=== PATIENT | female | born 1940 | race Hispanic/Latino ===

== ENCOUNTER 2016-10-27 09:20 | Emergency (ER) | payer MEDICARE, OTHER ==
[2016-10-27 09:22] VITALS: BMI 26.6
[2016-10-27 10:13] VITALS: BP 144/76; PULSE 97; RESP 17; TEMP 98.8; O2SAT 98
--- NOTE | 2016-10-27 10:40 | ED PDOC ---
Arrival/HPI - General Chief Complaint: GI Problem Time Seen by Provider: 10/27/16 09:35 Historian: Patient - History of Present Illness Narrative History of Present Illness (Text): 10/27/16 10:37 75 year old female presents to the emergency department complaining of constipation and rectal pain for the past 7 days. As per EMS, patient had a bowel movement prior to arrival. Patient reports she is on Percocet for a fall months ago. She states she is still passing gas. She reports she took over the counter laxatives with no improvement. Denies fever or rectal bleeding. PMD: Dr. Sinha Time/Duration: 1 week Symptom Onset: Gradual Symptom Course: Unchanged Modifying Factors (Text): Over the counter laxatives with no improvement Associated Symptoms (Text): None Past Medical History - Provider Review Nursing Documentation Reviewed: Yes - Infectious Disease Hx of Infectious Diseases: None - Cardiac Hx Cardiac Disorders: Yes Hx Hypertension: Yes - Pulmonary Hx Respiratory Disorders: No - Neurological Hx Neurological Disorder: Yes Other/Comment: cerebral palsy. contracted L arm - HEENT Hx HEENT Disorder: Yes (WEARS RX GLASSES,H/O OF DETACHED RETINA WITH SX WHEN SHE WAS 47 YRS OLD) - Renal Hx Renal Disorder: No - Endocrine/Metabolic Hx Endocrine Disorders: Yes Hx Diabetes Mellitus Type 1: Yes (borderline) - Hematological/Oncological Hx Blood Disorders: No - Integumentary Hx Dermatological Disorder: Yes (BILATERAL LE LYMPHEDEMA.EDEMA MORE TO LEFT THAN RIGHT.FLUSHED SKIN LEFT LEG) - Musculoskeletal/Rheumatological Hx Musculoskeletal Disorders: Yes (Cerebral Palsy) Hx Falls: Yes (FELL TODAY 06-17-16) Hx Unsteady Gait: Yes - Gastrointestinal Hx Gastrointestinal Disorders: No - Genitourinary/Gynecological Hx Genitourinary Disorders: No - Psychiatric Hx Psychophysiologic Disorder: No Hx Substance Use: No - Surgical History Hx Hysterectomy: Yes - Anesthesia Hx Anesthesia Reactions: No Hx Malignant Hyperthermia: No Family/Social History - Physician Review Nursing Documentation Reviewed: Yes Family/Social History: Unknown Family HX Smoking Status: Never Smoked Hx Alcohol Use: No Hx Substance Use: No Allergies/Home Meds Allergies/Adverse Reactions: Allergies ORANGE Allergy (Verified 10/27/16 09:26) ANAPHYLAXIS Penicillins Allergy (Verified 10/27/16 09:26) ANAPHYLAXIS Home Medications: Home Meds Medication Instructions Recorded Confirmed Esomeprazole Magnesium [Nexium] 40 mg PO DAILY 06/17/16 06/17/16 Pravastatin Sodium [Pravachol] 80 mg PO DAILY 06/17/16 06/17/16 Propranolol HCl [Propranolol HCl 120 mg PO DAILY 06/17/16 06/17/16 ER] cycloSPORINE [Restasis] 1 drp OU BID 06/17/16 06/17/16 Review of Systems - Physician Review All systems were reviewed & negative as marked: Yes - Review of Systems Constitutional: absent: Fevers Cardiovascular: absent: Chest Pain Gastrointestinal: Constipation, Other (Rectal pain). absent: Vomiting, Hematochezia Neurological: absent: Headache, Dizziness Physical Exam Vital Signs Reviewed: Yes Vital Signs Temp Pulse Resp BP Pulse Ox 10/27/16 10:10 98.8 F 97 H 17 144/76 98 Temperature: Afebrile Blood Pressure: Normal Pulse: Regular Respiratory Rate: Normal Appearance: Positive for: Well-Appearing, Non-Toxic, Comfortable Pain Distress: None Mental Status: Positive for: Alert and Oriented X 3 - Systems Exam Head: Present: Atraumatic, Normocephalic Pupils: Present: PERRL Extroacular Muscles: Present: EOMI Conjunctiva: Present: Normal Mouth: Present: Moist Mucous Membranes Neck: Present: Normal Range of Motion Respiratory/Chest: Present: Clear to Auscultation, Good Air Exchange. No: Respiratory Distress, Accessory Muscle Use Cardiovascular: Present: Regular Rate and Rhythm, Normal S1, S2. No: Murmurs Abdomen: Present: Normal Bowel Sounds. No: Tenderness, Distention, Peritoneal Signs Rectal: Present: Other (Piece of hard stool in rectal wall. Guest Laundry Attendant: Rajani, ED Scribe) Back: Present: Normal Inspection Upper Extremity: Present: Normal Inspection. No: Cyanosis, Edema Lower Extremity: Present: Normal Inspection. No: Edema Neurological: Present: GCS=15, CN II-XII Intact, Speech Normal Skin: Present: Warm, Dry, Normal Color. No: Rashes Psychiatric: Present: Alert, Oriented x 3, Normal Insight, Normal Concentration Medical Decision Making ED Course and Treatment: Impression: 75 year old female presents to the emergency department complaining of constipation and rectal pain for the past 7 days. Differential Diagnosis include but are not limited to: pt with large fecal impaction Plan: -- Fleet Enema -- Reassess and disposition Prior Visits: Notes and results from previous visits were reviewed. Patient last seen in ED on 06/17/16 for falls and admitted. Progress Notes: 10/27/16 10:32 Performed manual disimpaction with copious amount of stool removed. Patient reports she feels better and requesting discharge. 10/27/16 11:25 - Medication Orders Current Medication Orders: Discontinued Medications Sodium Phosphate (Fleet Enema) 135 ml RC STAT STA Stop: 10/27/16 09:46 Last Admin: 10/27/16 09:58 Dose: 135 ml - Scribe Statement The provider has reviewed the documentation as recorded by the Dahiana Hi Provider Scribe Attestation: All medical record entries made by the Dahiana were at my direction and personally dictated by me. I have reviewed the chart and agree that the record accurately reflects my personal performance of the history, physical exam, medical decision making, and the department course for this patient. I have also personally directed, reviewed, and agree with the discharge instructions and disposition. Disposition/Present on Arrival - Present on Arrival Any Indicators Present on Arrival: No History of DVT/PE: No History of Uncontrolled Diabetes: No Urinary Catheter: No History of Decub. Ulcer: No History Surgical Site Infection Following: None - Disposition Have Diagnosis and Disposition been Completed?: Yes Diagnosis: Fecal impaction Disposition: HOME/ ROUTINE Disposition Time: 10:00 Patient Problems: Current Active Problems Problem Status Onset Fecal impaction Acute Condition: STABLE Discharge Instructions (ExitCare): Constipation (ED), Fecal Impaction (ED) Additional Instructions: please follow up wiht your doctor. return to er with worsening symptoms or concerns. Referrals: Jaime Sinha MD [Primary Care Provider] - Follow up with primary
== END 2016-10-27 11:34 | disposition home or self-care (01) ==
LOC: ED 09:20
DX: K56.41 Fecal impaction (principal)

== ENCOUNTER 2018-03-04 15:07 | Inpatient (IN) | payer MEDICARE, OTHER ==
--- NOTE | 2018-03-04 15:23 | ED PDOC ---
Arrival/HPI - General Time Seen by Provider: 03/04/18 15:23 Historian: Patient - History of Present Illness Narrative History of Present Illness (Text): 03/04/18 15:33 77 year old female, whose past medical history includes cerebral palsy and hypertension, who presents to the ED complaining of left thigh pain s/p fall. Patient states she was waiting for her homemaker, when she tried to go to the bathroom on her own. Patient stepped on her own foot and fell backwards. Patient notes pain down the left thigh with movement. Patient denies any fever, chills, LOC, head trauma, neck pain, n/v/d, or any other complaints. Time/Duration: Prior to Arrival Symptom Onset: Gradual Symptom Course: Unchanged Activities at Onset: Light Context: Home Past Medical History - Provider Review Nursing Documentation Reviewed: Yes - Infectious Disease Hx of Infectious Diseases: None - Cardiac Hx Cardiac Disorders: Yes Hx Hypertension: Yes - Pulmonary Hx Respiratory Disorders: No - Neurological Hx Neurological Disorder: Yes Other/Comment: cerebral palsy. contracted L arm - HEENT Hx HEENT Disorder: Yes (WEARS RX GLASSES,H/O OF DETACHED RETINA WITH SX WHEN SHE WAS 47 YRS OLD) - Renal Hx Renal Disorder: No - Endocrine/Metabolic Hx Endocrine Disorders: Yes Hx Diabetes Mellitus Type 1: Yes (borderline) - Hematological/Oncological Hx Blood Disorders: No - Integumentary Hx Dermatological Disorder: Yes (BILATERAL LE LYMPHEDEMA.EDEMA MORE TO LEFT THAN RIGHT.FLUSHED SKIN LEFT LEG) - Musculoskeletal/Rheumatological Hx Musculoskeletal Disorders: Yes (Cerebral Palsy) Hx Falls: Yes (FELL TODAY 06-17-) Hx Unsteady Gait: Yes - Gastrointestinal Hx Gastrointestinal Disorders: No - Genitourinary/Gynecological Hx Genitourinary Disorders: No - Psychiatric Hx Psychophysiologic Disorder: No Hx Substance Use: No - Surgical History Hx Hysterectomy: Yes - Anesthesia Hx Anesthesia Reactions: No Hx Malignant Hyperthermia: No Family/Social History - Physician Review Nursing Documentation Reviewed: Yes Family/Social History: Unknown Family HX Smoking Status: Never Smoked Hx Alcohol Use: No Hx Substance Use: No Allergies/Home Meds Allergies/Adverse Reactions: Allergies ORANGE Allergy (Verified 10/27/16 09:26) ANAPHYLAXIS Penicillins Allergy (Verified 10/27/16 09:26) ANAPHYLAXIS Home Medications: Home Meds Medication Instructions Recorded Confirmed RX: Esomeprazole Magnesium [Nexium] 40 mg PO DAILY 06/17/16 06/17/16 RX: Pravastatin Sodium [Pravachol] 80 mg PO DAILY 06/17/16 06/17/16 RX: Propranolol HCl [Propranolol 120 mg PO DAILY 06/17/16 06/17/16 HCl ER] RX: cycloSPORINE [Restasis] 1 drp OU BID 06/17/16 06/17/16 Review of Systems - Physician Review All systems were reviewed & negative as marked: Yes - Review of Systems Constitutional: Normal Eyes: Normal ENT: Normal Respiratory: Normal. absent: SOB, Cough Cardiovascular: Normal. absent: Chest Pain Gastrointestinal: Normal Genitourinary Female: Normal. absent: Dysuria, Frequency Musculoskeletal: Other (LLE thigh pain). absent: Back Pain, Neck Pain Neurological: Normal. absent: Headache, Dizziness Endocrine: Normal Hemo/Lymphatic: Normal Psychiatric: Normal Physical Exam - Physical Exam Narrative Physical Exam (Text): 03/04/18 15:42 Gen: NAD, cooperative, well appearing, non-toxic. Head: NCAT. EYES: PERRL, EOMI, conjunctiva clear, EARS: TMs clear MOUTH: moist MM, posterior pharynx without erythema or exudate, uvula midline. CV: (+) S1S2, RRR, no M/G/R LUNGS: CTA B/L, No W/R/R, good air movement Abd: Soft, NTTP, no guarding, rebound or rigidity. Neuro: AAO x 3, GCS 15, CN 2-12 intact, motor and sensory grossly intact, 5/5 muscle strength B/L UE's and LE's. EXT: Circumferential erythema from 1/3 left calf to ankle. No wounds. Clean. Left hand contracted. no cyanosis or edema. (+) TTP along left lateral thigh and w/internal rotation of LLE. Distal pulses 2+. 03/05/18 19:03 Medical Decision Making ED Course and Treatment: 03/04/18 15:56 Impression: 77 year olf female presents to the ED complaining of left thigh pain s/p fall today. Plan: -- Labs -- Morphine -- Blood Culture -- Xray left hip -- UA -- US LLE Progress Notes: Per patient's niece, patient is not allergic to Percocet, pt just gets constipated with use. 03/04/18 18:18 Xray let hip reviewed, shows IT fracture. Labs reviewed and d/w pt/family, wbc elevated at 17.9, reactive v. infection, given LLE erythema will cover w/abx. Patient and pt's son made aware of fracture and need for admission. Pierre catheter to be placed. 03/04/18 18:[address] Rodriguez, who is aware and agrees with plan. Will come evaluate pt at bedside. Pt will be admitted to hospitalist. 03/04/18 19:35 Dr. Carvajal accepts pt to her service. US LLE still pending. Disposition/Present on Arrival - Present on Arrival Any Indicators Present on Arrival: No History of DVT/PE: No History of Uncontrolled Diabetes: No Urinary Catheter: No History Surgical Site Infection Following: None - Disposition Have Diagnosis and Disposition been Completed?: Yes Diagnosis: Hip fracture, Cellulitis Disposition: HOSPITALIZED Disposition Time: 19:35 Patient Plan: Admission Condition: STABLE
[2018-03-04] MEDS ORDERED: Morphine 2 mg/ml ISec IVP STA (15:55)
[2018-03-04 17:20] LABS: BASO # 0.04 K/mm3 (0.0-2.0); BASO % 0.2 % (0.0-3.0); EOS # 0.3 (0.0-0.7); EOS % 1.6 % (1.5-5.0); GRAN # 15.74 (1.4-6.5); GRAN % 87.7 % (50.0-68.0); HEMOGLOBIN 13.5 g/dL (12.0-16.0); LYMPH # 1.2 (1.2-3.4); LYMPH % 6.7 % (22.0-35.0); MEAN CELL VOLUME 91.3 fl (80.0-105.0); MEAN CORPUSCULAR HEMOGLOBIN 30.2 pg (25.0-35.0); MEAN CORPUSCULAR HGB CONC 33.1 g/dl (31.0-37.0); MONO # 0.7 (0.1-0.6); MONO % 3.8 % (1.0-6.0); RBC 4.47 10^6/uL (3.5-6.1); RED CELL DISTRIBUTION WIDTH 13.6 % (11.5-14.5); WHITE BLOOD COUNT 17.9 10^3/uL (4.5-11.0)
[2018-03-04 17:33] LABS: ALB/GLOB RATIO 1.1 (1.1-1.8); ALBUMIN 3.9 g/dL (3.0-4.8); ALT/SGPT 35 U/L (7-56); AST/SGOT 82 U/L (14-36); BLOOD UREA NITROGEN 28 mg/dL (7-21); GFR NON-AFRICAN AMERICAN > 60
[2018-03-04] MEDS ORDERED: Vancomycin 1gm in NS 250ml 1 GM/250 ML BAG IVPB STA (18:43)
[2018-03-04] MEDS ORDERED: Morphine 4 mg/ml ISec IVP STA ×2 (19:49→20:33)
--- NOTE | 2018-03-04 20:11 | CP.PCM.HP ---
History of Present Illness - History of Present Illness History of Present Illness: Oracio Harley DO, PGY-1 Hospitalist Admission History and Physical for Dr. Genet Carvajal Ms. Wilburn is a 77 yo F with PMH of cerebral palsy, HTN, and DVT who presented to ED following a fall on to her left hip. Patient states that she was walking to the bathroom when she fell directly on to her left hip and bruised her LLE as well. She fell on to the tile in the bathroom. She states that her caregiver was helping her at the time but was unable to prevent her from falling. She remembers falling and denies LOC or pre-syncopal symptoms of dizziness, blurred vision. She is in significant pain from the left hip and LLE but otherwise denies fever/chills, CP, SOB, nausea/vomiting/abdominal pain, peripheral numbness/tingling. PMH: cerebral palsy affecting LUE, HTN, DVT PSH: cataracts, detached retina, hysterectomy Soc Hx: denies tobacco, alcohol, or drug use, denies prior tobacco use, normally ambulates around her house with help of caregiver Fam Hx: reviewed, non-contributory Home medications: MAR medications reviewed with family members. Family members cannot remember the doses, call pharmacy in AM to confirm Preferred pharmacy: [facility] in [place] Allergies: orange, PCN (reaction is anaphylaxis) Present on Admission - Present on Admission Any Indicators Present on Admission: Yes History of DVT/PE: Yes History of Uncontrolled Diabetes: No Urinary Catheter: No Decubitus Ulcer Present: No Review of Systems - Constitutional Constitutional: absent: Chills, Fever - EENT Eyes: absent: Blurred Vision, Change in Vision - Cardiovascular Cardiovascular: absent: Chest Pain, Dyspnea - Respiratory Respiratory: absent: Cough, Dyspnea - Gastrointestinal Gastrointestinal: absent: Abdominal Pain, Nausea, Vomiting - Genitourinary Genitourinary: absent: Change in Urinary Stream, Difficulty Urinating, Dysuria - Musculoskeletal Musculoskeletal: absent: Abnormal Gait, Back Pain - Neurological Neurological: absent: Syncope, Vertigo Past Patient History - Infectious Disease Hx of Infectious Diseases: None - Past Social History Smoking Status: Never Smoked - CARDIAC Hx Cardiac Disorders: Yes Hx Hypertension: Yes - PULMONARY Hx Respiratory Disorders: No - NEUROLOGICAL Hx Neurological Disorder: Yes Other/Comment: cerebral palsy. contracted L arm - HEENT Hx HEENT Problems: Yes (WEARS RX GLASSES,H/O OF DETACHED RETINA WITH SX WHEN SHE WAS 47 YRS OLD) - RENAL Hx Chronic Kidney Disease: No - ENDOCRINE/METABOLIC Hx Endocrine Disorders: Yes Hx Diabetes Mellitus Type 1: Yes (borderline) - HEMATOLOGICAL/ONCOLOGICAL Hx Blood Disorders: No - INTEGUMENTARY Hx Dermatological Problems: Yes (BILATERAL LE LYMPHEDEMA.EDEMA MORE TO LEFT THAN RIGHT.FLUSHED SKIN LEFT LEG) - MUSCULOSKELETAL/RHEUMATOLOGICAL Hx Musculoskeletal Disorders: Yes (Cerebral Palsy) Hx Falls: Yes (FELL TODAY 06-17-16) Hx Unsteady Gait: Yes - GASTROINTESTINAL Hx Gastrointestinal Disorders: No - GENITOURINARY/GYNECOLOGICAL Hx Genitourinary Disorders: No - PSYCHIATRIC Hx Psychophysiologic Disorder: No Hx Substance Use: No - SURGICAL HISTORY Hx Hysterectomy: Yes - ANESTHESIA Hx Anesthesia Reactions: No Hx Malignant Hyperthermia: No Meds Allergies/Adverse Reactions: Allergies Allergy/AdvReac Type Severity Reaction Status Date / Time ORANGE Allergy ANAPHYLAXIS Verified 10/27/16 09:26 Penicillins Allergy ANAPHYLAXIS Verified 10/27/16 09:26 Physical Exam - Constitutional Appears: Other (in severe pain from L hip, no acute respiratory distress) - Head Exam Head Exam: ATRAUMATIC, NORMOCEPHALIC - Eye Exam Eye Exam: EOMI, Normal appearance, PERRL - ENT Exam ENT Exam: Mucous Membranes Moist - Neck Exam Neck exam: Positive for: Full Rom, Normal Inspection - Respiratory Exam Respiratory Exam: Clear to Auscultation Bilateral, NORMAL BREATHING PATTERN. absent: Accessory Muscle Use, Rales, Rhonchi, Wheezes, Respiratory Distress - Cardiovascular Exam Cardiovascular Exam: REGULAR RHYTHM, RRR, +S1, +S2. absent: Diastolic murmur, Gallop, Rubs, Systolic Murmur - GI/Abdominal Exam GI & Abdominal Exam: Normal Bowel Sounds, Soft. absent: Guarding, Rebound - Extremities Exam Extremities exam: Positive for: pedal edema Additional comments: LLE hematoma from fall, LLE turned inward c/w L hip fx - Neurological Exam Neurological exam: Alert, Oriented x3 - Psychiatric Exam Psychiatric exam: Anxious - Skin Skin Exam: Dry, Intact, Warm Results - Vital Signs Recent Vital Signs: Last Vital Signs Temp 97.6 F 03/04/18 15:31 Pulse 75 03/04/18 17:08 Resp 17 03/04/18 17:08 BP 153/83 H 03/04/18 17:08 Pulse Ox 97 03/04/18 17:08 - Labs Result Diagrams: 03/04/18 17:00 03/04/18 17:00 Labs: Laboratory Results - last 24 hr 03/04/18 03/04/18 17:00 17:00 WBC 17.9 H D RBC 4.47 Hgb 13.5 Hct 40.8 MCV 91.3 MCH 30.2 MCHC 33.1 RDW 13.6 Plt Count 216 MPV 11.0 Gran % 87.7 H Lymph % (Auto) 6.7 L [place] % (Auto) 3.8 Eos % (Auto) 1.6 Baso % (Auto) 0.2 Gran # 15.74 H Lymph # (Auto) 1.2 [place] # (Auto) 0.7 H Eos # (Auto) 0.3 Baso # (Auto) 0.04 Sodium 135 Potassium 3.9 Chloride 101 Carbon Dioxide 25 Anion Gap 13 BUN 28 H Creatinine 0.7 Est GFR ( Amer) > 60 Est GFR (Non-Af Amer) > 60 Random Glucose 165 H Calcium 10.0 Total Bilirubin 0.6 AST 82 H ALT 35 Alkaline Phosphatase 99 Total Protein 7.5 Albumin 3.9 Globulin 3.6 Albumin/Globulin Ratio 1.1 Assessment & Plan - Assessment and Plan (Free Text) Assessment: 77 yo F with PMH of cerebral palsy, HTN, DVT presents to ED following a fall found to have L acetabular fx. Plan per Dr. Scott is for OR tomorrow. Plan: 1. L acetabular Fx 2/2 trauma from fall Plan per ortho is for OR tomorrow Patient has not eaten all day, so able to eat dinner but NPO after midnight Morphine 4 mg IVP Q4h for pain control Monitor for pain control Pre-op labs including CBC, CMP, coag, cxr, ekg all completed Dr. Zuniga cardiology consulted for cardiac clearance per ortho request Hold home eliquis (on home eliquis for hx of DVT) until authorized by ortho 2. Hx HTN Restart home meds post-op Monitor BP closely 3. Hx DVT Hold home eliquis prior to surgery DVT/GI PPX: hold DVT ppx prior to surgery, will start ae hose and/or scds after, protonix Full Code Monitor on med/surg Case and plan reviewed and discussed with my attending Dr. Genet Harley, DO IM Resident PGY-1
[2018-03-04 21:04] LABS: URINE APPEARANCE CLEAR (CLEAR); URINE BILIRUBIN NEGATIVE (NEGATIVE); URINE BLOOD NEGATIVE (NEGATIVE); URINE COLOR YELLOW (YELLOW); URINE GLUCOSE (UA) NEGATIVE (NEGATIVE); URINE LEUKOCYTE ESTERASE NEGATIVE Leu/uL (NEGATIVE); URINE PROTEIN TRACE mg/dL (<30 mg/dL); URINE UROBILINOGEN 0.2 E.U./dL (<1 E.U./dL)
[2018-03-04 21:15] LABS: URINE BACTERIA NEG (NEG); URINE EPITHELIAL CELLS 0 - 2 /hpf (0-5); URINE RBC NEGATIVE /hpf (0-2); URINE WBC NEGATIVE /hpf (0-6)
[2018-03-04] MEDS: Aztreonam 1 Gm in NS 100mL 100 ML IVPB SCH (22:20)
[2018-03-04 22:42] VITALS: BMI 25.1
[2018-03-04 23:08] LABS: INR 1.41; PARTIAL THROMBOPLASTIN TIME 32.6 Seconds (25.1-36.5); PROTHROMBIN TIME 16.2 SECONDS (9.4-12.5)
[2018-03-05] MEDS: Morphine 4 mg/ml ISec IVP PRN ×2 (00:18→03:27)
[2018-03-05] MEDS ORDERED: HYDROmorphone 0.5 mg/0.5 ml ISec IVP ONE ×3 (01:27→14:53)
[2018-03-05] MEDS: Aztreonam 1 Gm in NS 100mL 100 ML IVPB SCH (05:15)
--- NOTE | 2018-03-05 06:06 | CON ---
DATE: 03/04/2018 ORTHOPEDIC CONSULTATION HISTORY OF PRESENT ILLNESS: A 77-year-old female who came in to the emergency room from a fall at home where she was alone and injured her left hip. X-ray shows displaced subcapital fracture, left hip. When she is medically cleared, she will need bipolar hip prosthesis and a cardiac clearance from Dr. Zuniga . Private doctor also. She is on Eliquis, so we will have to hold off the Eliquis and if we could do it Tuesday, which is in 24 hours we need to stop the Eliquis, so she can go to surgery without undue bleeding. The day of fracture and the day of admission in the ER is 03/04/2018, and we will try to get her cleared for surgery on Tuesday or Tuesday. FINAL DIAGNOSIS: Displaced subcapital fracture, left hip. Dhruv Scott DO MTDSilvia
[2018-03-05 07:49] LABS: BASO # 0.04 K/mm3 (0.0-2.0); BASO % 0.3 % (0.0-3.0); EOS # 0.1 (0.0-0.7); EOS % 0.6 % (1.5-5.0); GRAN # 11.86 (1.4-6.5); GRAN % 84.9 % (50.0-68.0); HEMOGLOBIN 12.1 g/dL (12.0-16.0); LYMPH % 7.4 % (22.0-35.0); MEAN CELL VOLUME 90.6 fl (80.0-105.0); MEAN CORPUSCULAR HEMOGLOBIN 29.2 pg (25.0-35.0); MEAN CORPUSCULAR HGB CONC 32.3 g/dl (31.0-37.0); MEAN PLATELET VOLUME 10.8 fl (7.0-11.0); MONO % 6.8 % (1.0-6.0); RBC 4.14 10^6/uL (3.5-6.1); RED CELL DISTRIBUTION WIDTH 13.3 % (11.5-14.5)
[2018-03-05 08:32] LABS: ALB/GLOB RATIO 1.1 (1.1-1.8); ALBUMIN 3.7 g/dL (3.0-4.8); ALT/SGPT 34 U/L (7-56); AST/SGOT 38 U/L (14-36); BLOOD UREA NITROGEN 27 mg/dL (7-21); CALCIUM 9.6 mg/dL (8.4-10.5); GFR NON-AFRICAN AMERICAN > 60
[2018-03-05] MEDS: HYDROmorphone 1 mg/ml ISec IVP PRN ×3 (09:09→22:59)
[2018-03-05] MEDS ORDERED: Potassium Chloride 20 mEq ER Tab PO ONE (09:40)
--- NOTE | 2018-03-05 10:02 | RAD ---
Date of service: 03/04/2018 HISTORY: pre-admission COMPARISON: 06/25/2016 FINDINGS: LUNGS: The lungs are well inflated and clear. PLEURA: No pleural effusions or pneumothorax. CARDIOVASCULAR: The heart is normal in size. No aortic atherosclerotic calcification present. OSSEOUS STRUCTURES: There is diffuse bone demineralization. There is an old fracture deformity in a left lower posterior rib. VISUALIZED UPPER ABDOMEN: Normal. OTHER FINDINGS: None. IMPRESSION: No active pulmonary disease.
--- NOTE | 2018-03-05 10:11 | CARD ---
APPROVED REPORT Date of service: 03/05/2018 EKG Measurement Heart [id number] <Conclusion> Sinus tachycardia with premature atrial complexes PRWP LVH by voltage STTW changes c/w ischemia, new Prolonged QTc
--- NOTE | 2018-03-05 10:30 | RAD ---
PROCEDURE: Left Hip X-ray Radiographs. HISTORY: fall COMPARISON: None. FINDINGS: BONES: The pelvic ring is intact. There is diffuse bone demineralization. There is an acute nondisplaced left subcapital femoral fracture. JOINTS: Normal. SOFT TISSUES: Normal. OTHER FINDINGS: None. IMPRESSION: Acute nondisplaced left femoral subcapital fracture. No dislocation.
[2018-03-05] MEDS ORDERED: Etomidate 20 mg/10ml Inj IV ONE (11:05)
[2018-03-05] MEDS ORDERED: Succinylcholine 200 mg/10 ml Inj IV ONE (11:06)
[2018-03-05] MEDS ORDERED: Phenylephrine 10 mg/ml Inj ONE (11:07)
[2018-03-05] MEDS ORDERED: HYDROmorphone 0.5 mg/0.5 ml ISec IVP PRN (11:18)
[2018-03-05] MEDS ORDERED: Lactated Ringer's 1,000 ML IV SCH ×2 (11:30→14:45)
[2018-03-05] MEDS ORDERED: Bupivacaine 0.5% 50 ML IJ ONE (11:35)
[2018-03-05] MEDS ORDERED: Sevoflurane - Inhalation Anesthetic Liq (250 ml) ONE (11:40)
[2018-03-05] MEDS ORDERED: Rocuronium 10 mg/ml (5 ml) ONE (11:53)
[2018-03-05] MEDS ORDERED: Esmolol 100 mg/10ml Inj IV ONE ×2 (12:00→13:13)
[2018-03-05] MEDS ORDERED: Vancomycin 1 g Inj ONE ×2 (12:00→12:03)
[2018-03-05] MEDS ORDERED: Neostigmine Methylsulfate 3mg/3ml Syringe IV ONE (12:56)
--- NOTE | 2018-03-05 13:53 | CP.PCM.PN ---
<Pola Parnell - Last Filed: 03/05/18 14:07> Subjective - Date & Time of Evaluation Date of Evaluation: 03/05/18 Time of Evaluation: 06:00 - Subjective Subjective: Pt seen and examined this morning. Pt reports left hip pain. Pt denies chest pain or SOB. Objective - Vital Signs/Intake and Output Vital Signs (last 24 hours): Temp Pulse Resp BP Pulse Ox 98.6 F 95 H 18 159/93 H 97 03/05/18 06:00 03/05/18 06:00 03/05/18 06:00 03/05/18 06:00 03/05/18 06:00 Intake and Output: 03/05/18 03/05/18 06:59 18:59 Intake Total 450 Output Total 400 Balance 50 - Medications Medications: Current Medications Hydralazine HCl (Apresoline) 10 mg IVP Q6H PRN PRN Reason: Systolic Blood Pressure Hydromorphone HCl (Dilaudid) 1 mg IVP Q3H PRN PRN Reason: Pain, severe (8-10) Last Admin: 03/05/18 09:09 Dose: 1 mg Hydromorphone HCl (Dilaudid) 0.5 mg IVP Q15M PRN PRN Reason: Pain, moderate (4-7) Stop: 03/05/18 17:00 Lactated Ringer's (Lactated Ringer's) 1,000 mls @ 75 mls/hr IV .[id number] [facility] Stop: 03/05/18 13:31 Ondansetron HCl (Zofran Inj) 4 mg IVP ONCE PRN PRN Reason: Nausea/Vomiting - Labs Labs: 03/05/18 07:00 03/05/18 07:00 PT 16.2 SECONDS (9.4-12.5) H 03/04/18 22:56 INR 1.41 03/04/18 22:56 APTT 32.6 Seconds (25.1-36.5) 03/04/18 22:56 - Constitutional Appears: Non-toxic, No Acute Distress - Head Exam Head Exam: ATRAUMATIC, NORMAL INSPECTION, NORMOCEPHALIC - Eye Exam Eye Exam: EOMI - ENT Exam ENT Exam: Mucous Membranes Moist - Neck Exam Neck Exam: Full ROM - Respiratory Exam Respiratory Exam: Clear to Ausculation Bilateral, NORMAL BREATHING PATTERN. absent: Accessory Muscle Use, Wheezes, Respiratory Distress - Cardiovascular Exam Cardiovascular Exam: RRR, +S1, +S2. absent: Diastolic murmur, Murmur - GI/Abdominal Exam GI & Abdominal Exam: Soft, Normal Bowel Sounds. absent: Distended, Tenderness - Extremities Exam Extremities Exam: Tenderness. absent: Calf Tenderness, Full ROM, Pedal Edema Additional comments: left leg internally rotated, due to cerebral palsy - Neurological Exam Neurological Exam: Alert, Awake, Oriented x3 - Psychiatric Exam Psychiatric exam: Normal Affect, Normal Mood - Skin Skin Exam: Dry, Normal Color, Warm Assessment and Plan - Assessment and Plan (Free Text) Assessment: 77 yo F with PMH of cerebral palsy, HTN, DVT presents to ED following a fall found to have L acetabular fx. Plan: L acetabular Fx, ORIF - WBC 14 - 2/2 mechanical fall - pt had ORIF performed today - Morphine 4 mg IVP Q4h for pain control - Dr. Zuniga cardiology consulted for cardiac clearance - Hold home eliquis Hx HTN - Monitor BP closely, restart after surgery Hx DVT - Hold home eliquis prior to surgery Ppx - protonix - Full Code Pt seen, examined, assessment and plan discussed with Dr Mel Parnell PGY1 <Gisel Leal - Last Filed: 03/05/18 16:22> Objective - Vital Signs/Intake and Output Vital Signs (last 24 hours): Temp Pulse Resp BP Pulse Ox 98.2 F 88 16 154/68 H 95 03/05/18 15:57 03/05/18 15:57 03/05/18 15:57 03/05/18 15:57 03/05/18 15:57 Intake and Output: 03/05/18 03/05/18 06:59 18:59 Intake Total 450 Output Total 400 Balance 50 - Medications Medications: Current Medications Docusate Sodium (Colace) 100 mg PO TID [facility] Heparin Sodium (Porcine) (Heparin) 5,000 units SC Q12 [facility]; Protocol Hydralazine HCl (Apresoline) 10 mg IVP Q6H PRN PRN Reason: Systolic Blood Pressure Hydromorphone HCl (Dilaudid) 1 mg IVP Q3H PRN PRN Reason: Pain, severe (8-10) Last Admin: 10/28/18 09:09 Dose: 1 mg Hydromorphone HCl (Dilaudid) 0.5 mg IVP Q15M PRN PRN Reason: Pain, moderate (4-7) Stop: 03/05/18 17:00 Last Admin: 03/05/18 14:35 Dose: 0.5 mg Lactated Ringer's (Lactated Ringer's) 1,000 mls @ 75 mls/hr IV .[id number] [facility]ES[facility] Stop: 03/05/18 16:46 Clindamycin Phosphate (Cleocin) 600 mg in 50 mls @ 50 mls/hr IVPB Q12 [facility]; Protocol Morphine Sulfate (Morphine) 4 mg IVP Q15M PRN PRN Reason: Pain, severe (8-10) Ondansetron HCl (Zofran Inj) 4 mg IVP ONCE PRN PRN Reason: Nausea/Vomiting - Labs Labs: 03/05/18 07:00 03/05/18 07:00 PT 16.2 SECONDS (9.4-12.5) H 03/04/18 22:56 INR 1.41 03/04/18 22:56 APTT 32.6 Seconds (25.1-36.5) 03/04/18 22:56 Attending/Attestation - Attestation I have personally seen and examined this patient.: Yes I have fully participated in the care of the patient.: Yes I have reviewed all pertinent clinical information, including history, physical exam and plan: Yes Notes (Text): 03/05/18 16:18 77 year old female with past medical history of hypertension, DVT, and cerebral palsy who presented s/p mechanical fall found to have left acetabular fracture. Case was discussed with orthopedics today; patient is for OR today. Cardiology evaluation was requested for clearance. Leukocytosis likely reactive secondary to above. CXR/UA is negative. Will continue to monitor. Eliquis is held for plan for procedure today; consider resuming post procedure if okay with cardiology and orthopedics. Daughter is at bedside and questions were answered. Gisel Leal MD Hospitalist.
[2018-03-05] MEDS ORDERED: Metoprolol 1 mg/ml Inj ONE (14:21)
[2018-03-05] MEDS ORDERED: Morphine 4 mg/ml ISec IVP PRN (14:31)
[2018-03-05] MEDS ORDERED: HYDROmorphone 0.5 mg/0.5 ml ISec ONE ×2 (14:34→14:56)
[2018-03-05] MEDS: Clindamycin 600mg/50ml D5W 600 MG/50 ML VIAL IVPB SCH (21:03)
--- NOTE | 2018-03-05 21:40 | CON ---
DATE: 03/05/2018 CARDIOLOGY CONSULTATION HISTORY: The patient is a 77-year-old woman who presented with right hip pain after a fall. The fall was a mechanical fall, no associated syncope, no dizziness with it. PAST MEDICAL HISTORY: Notable for hypertension. Hypertension treated with Diovan and hydralazine. In addition, the patient suffers from hypercholesterolemia. She is also on Eliquis at home for history of DVTs. Her last dose was 24 hours ago. She lives with chronic and cerebral palsy, which leaves her with difficulty ambulating. SOCIAL HISTORY: She denies smoking. REVIEW OF SYSTEMS: Fourteen-point review of systems is reviewed in detail. No cardiac symptomatology is noted. PHYSICAL EXAMINATION: VITAL SIGNS: Blood pressure 159/93, heart rates in the 90s, normal sinus rhythm. NECK: Negative JVD. LUNGS: Without rales. HEART: Reveals S1, S2 with a short systolic ejection murmur. EXTREMITIES: Without edema. EKG shows normal sinus rhythm with nonspecific ST-T changes. LABORATORY DATA: Hemoglobin is 12.1. Chemistries, BUN and creatinine unremarkable. The potassium is 3.3. IMPRESSION: 1. Status post mechanical fall. 2. Right hip fracture. 3. History of deep venous thrombosis. 4. History of cerebral palsy. 5. Hypertension. 6. Hypercholesterolemia. Given these findings, the patient's predominant cardiac risk is not cardiac in nature. Her cerebral palsy and difficulty ambulating would presents with a postop issues. In addition, I have discussed with the patient about a slightly increased and bleeding risk given her recent Eliquis dose. However, given the risk and benefit analysis, surgery would be best done as soon as possible. Andi Garibay MD
--- NOTE | 2018-03-06 02:16 | OP ---
PROCEDURE DATE: 03/05/2018 PREOPERATIVE DIAGNOSIS: Displaced subcapital fracture of left hip. POSTOPERATIVE DIAGNOSIS: Displaced subcapital fracture of left hip. PROCEDURE: Left hip bipolar prosthesis using a Biomet bipolar cup prosthesis with porous-coated femoral stem of 11 mm wide x 135 mm long, taper stem type 1 and a standard neck in a bipolar component of 43 mm x 28 mm head. SANDBLAST OPERATOR SURGEON: A agriculture mechanic named, Michele. ANESTHESIA: General endotracheal tube. DESCRIPTION OF PROCEDURE: The patient was taken to the OR. Left hip prepped and draped in sterile fashion. She had preexisting cerebral palsy on the left side and there was a left subcapital fracture. It appeared to be over 2 weeks old considering no sharp edges of the bone. Probably, it was a nondisplaced fracture than displaced, . Planned to do an anterolateral approach considering the high chance of dislocation posteriorly for this patient when she internally rotates. We visualized this subcutaneous tissues approximately about 6 inches long and it went down to the fascia. Split the fascia in line with the incision, which was right over the greater trochanter only 3 cm above and 3 cm below the trochanter. The fascia lloyd was opened. We came two thirds of it posteriorly and one third anteriorly by dissecting it off the femur with piece of sliver of bone from the trochanter to serve an easy repair. Now, retracted anteriorly to allow to get to the gluteus minimus in the anterior capsule, which was opened and tagged, eventually what we used to repair the anterior capsule. The femoral head was retrieved with a corkscrew and a skid and appropriate reaming done of the femur, so we could see the bone was already well rounded from the fracture and it was over 2 weeks old. Then we prepped the femur with reaming and rasping using an 11 mm stem. A trial reduction was done and stable. Then, we put the permanent porous-coated prosthesis in, attached to the standard neck and head and 43 mm head bipolar component. Closed the capsule through the bone anchoring through the bone tunnels with #1 FiberWire for sutures and then we closed the wound with 0 Vicryl for the fascia and we put vancomycin powder 2 g into the wound before we closed the fascia. This settled into the fascia and the joint. Then, we closed the vastus lateralis and gluteus medius with 0 Vicryl also and skin with a combination of 2-0 nylon interrupted and stainless steel adelaide. The patient was taken to the recovery room in an abduction pillow for protection because she is a little rambunctious and a knee immobilizer. Dhruv Scott DO MTDSilvia
[2018-03-06] MEDS: HYDROmorphone 1 mg/ml ISec IVP PRN ×4 (02:34→20:57)
[2018-03-06 04:09] LABS: BASO # 0.01 K/mm3 (0.0-2.0); BASO % 0.1 % (0.0-3.0); GRAN # 7.93 (1.4-6.5); GRAN % 71.7 % (50.0-68.0); LYMPH # 1.5 (1.2-3.4); LYMPH % 13.3 % (22.0-35.0); MEAN CELL VOLUME 89.8 fl (80.0-105.0); MEAN CORPUSCULAR HEMOGLOBIN 30.2 pg (25.0-35.0); MEAN CORPUSCULAR HGB CONC 33.6 g/dl (31.0-37.0); MONO # 1.7 (0.1-0.6); MONO % 14.9 % (1.0-6.0); RBC 2.75 10^6/uL (3.5-6.1); RED CELL DISTRIBUTION WIDTH 13.7 % (11.5-14.5); WHITE BLOOD COUNT 11.1 10^3/uL (4.5-11.0)
[2018-03-06 04:22] LABS: HEMOGLOBIN 8.3 g/dL (12.0-16.0)
[2018-03-06] MEDS ORDERED: Iodixanol 320 MG/ML 100 ML BOTTLE IV ONE (04:50)
[2018-03-06] MEDS ORDERED: Sodium Chloride 0.9% 500 ML IV STA (04:58)
[2018-03-06 05:46] LABS: ALBUMIN 2.7 g/dL (3.0-4.8); BLOOD UREA NITROGEN 28 mg/dL (7-21); CALCIUM 8.6 mg/dL (8.4-10.5); GFR NON-AFRICAN AMERICAN > 60
[2018-03-06 05:47] LABS: ALT/SGPT 36 U/L (7-56); AST/SGOT 47 U/L (14-36); TROPONIN I 0.09 ng/mL
--- NOTE | 2018-03-06 07:28 | CP.PCM.PN ---
Subjective - Date & Time of Evaluation Date of Evaluation: 03/06/18 Time of Evaluation: 06:50 - Subjective Subjective: Awake, alert, no distress, post left hip surgery Reason for consultation and follow up: Cardiac evaluation and risk stratification for left hip surgery,status post fall, follow up post left hip surgery , history of cerebral palsy,hypertension, and DVT. See and examined by me and Dr. Zuniga Objective - Vital Signs/Intake and Output Vital Signs (last 24 hours): Temp Pulse Resp BP Pulse Ox 98.5 F 94 H 18 117/66 93 L 03/06/18 07:13 03/06/18 07:13 03/06/18 07:13 03/06/18 07:13 03/06/18 03:36 Intake and Output: 03/06/18 03/06/18 06:59 18:59 Intake Total 300 Balance 300 - Medications Medications: Current Medications Docusate Sodium (Colace) 100 mg PO TID [facility] Last Admin: 03/05/18 17:14 Dose: Not Given Heparin Sodium (Porcine) (Heparin) 5,000 units SC Q12 [facility]; Protocol Hydralazine HCl (Apresoline) 10 mg IVP Q6H PRN PRN Reason: Systolic Blood Pressure Hydromorphone HCl (Dilaudid) 1 mg IVP Q3H PRN PRN Reason: Pain, severe (8-10) Last Admin: 03/06/18 02:34 Dose: 1 mg Clindamycin Phosphate (Cleocin) 600 mg in 50 mls @ 50 mls/hr IVPB Q12 [facility]; Protocol Last Admin: 03/05/18 21:03 Dose: 50 mls/hr Morphine Sulfate (Morphine) 4 mg IVP Q15M PRN PRN Reason: Pain, severe (8-10) Ondansetron HCl (Zofran Inj) 4 mg IVP ONCE PRN PRN Reason: Nausea/Vomiting - Labs Labs: 03/06/18 03:55 03/06/18 03:55 PT 16.2 SECONDS (9.4-12.5) H 03/04/18 22:56 INR 1.41 03/04/18 22:56 APTT 32.6 Seconds (25.1-36.5) 03/04/18 22:56 - Constitutional Appears: Non-toxic, No Acute Distress - Head Exam Head Exam: NORMAL INSPECTION, NORMOCEPHALIC - Eye Exam Eye Exam: Normal appearance Pupil Exam: NORMAL ACCOMODATION - ENT Exam ENT Exam: Mucous Membranes Dry - Respiratory Exam Respiratory Exam: Clear to Ausculation Bilateral, NORMAL BREATHING PATTERN - Cardiovascular Exam Cardiovascular Exam: +S1, +S2 - GI/Abdominal Exam GI & Abdominal Exam: Soft, Normal Bowel Sounds - Extremities Exam Additional comments: left hip dressing. with abductor pillow intact 2-3 + foot edema contracted left arm - Neurological Exam Neurological Exam: Alert, Awake, Oriented x3 - Psychiatric Exam Psychiatric exam: Normal Affect, Normal Mood - Skin Skin Exam: Dry, Normal Color, Warm Assessment and Plan - Assessment and Plan (Free Text) Assessment: A 77 year old female who came in to the ER due to fall having a left hip fracture. History of cerebral palsy.hypertension, DVT on Eliquis. Cleared for left hip surgery by Dr. Garibay (covering our service). Status post left ORIF POD #1. Cardiac status stable.Denies shortness of breath.Will order ECHO. Review of previous cardiac work up: 06/22/16- ECHO- Normal LV size, LVEF 60 % Moderately calcified aortic valve Plan: No distress, no shortness of breath For Echo today to evaluate LV function Left hip surgery POD # 1 Cardiac status stable Heart rate and blood pressure controlled H/H low,PRBC transfusing Will start low dose betablocker Continue current treatment Continue current medications Chart reviewed Will follow up Plan and treatment discussed with Dr. Zuniga
--- NOTE | 2018-03-06 09:37 | RAD ---
Date of service: 03/06/2018 PROCEDURE: CHEST RADIOGRAPH, 1 VIEW HISTORY: tachy cardia + post op fever COMPARISON: 03/04/2018 FINDINGS: LUNGS: Clear. PLEURA: No pneumothorax or pleural fluid seen. CARDIOVASCULAR: Normal. OSSEOUS STRUCTURES: No significant abnormalities. VISUALIZED UPPER ABDOMEN: Normal. OTHER FINDINGS: None. IMPRESSION: No active disease.
[2018-03-06] MEDS: Heparin25000 units/250ml 1/2NS 25,000 UNITS/250 ML BAG IV PRN ×2 (10:10→17:31)
--- NOTE | 2018-03-06 10:39 | CT ---
Date of service: 03/06/2018 PROCEDURE: CT Chest with contrast (Pulmonary Angiogram) HISTORY: tachy post op COMPARISON: None available. TECHNIQUE: Axial computed tomography images were obtained of the chest in the pulmonary arterial phase of enhancement. Coronal and sagittal reformatted images were created and reviewed. Intravenous contrast dose: Radiation dose: Total exam DLP = 436.3 mGy-cm. This CT exam was performed using one or more of the following dose reduction techniques: Automated exposure control, adjustment of the mA and/or kV according to patient size, and/or use of iterative reconstruction technique. FINDINGS: PULMONARY ARTERIES: Questionable segmental right lower lobe pulmonary emboli. AORTA: No acute findings. No thoracic aortic aneurysm. No aortic atherosclerotic calcification or mural plaque present. LUNGS: Millimeter diaphragm with linear atelectasis at the right base. Minimal axis at the left base. PLEURAL SPACES: Unremarkable. No effusion or pneumothorax. HEART: Unremarkable. No cardiomegaly. No significant pericardial effusion. LYMPH NODES: No lymphadenopathy. BONES, CHEST WALL: Unremarkable. No fracture or destructive lesion OTHER FINDINGS: Marked esophageal dilatation with air-fluid level in association with hiatal hernia. Recommend correlation with upper GI series and/or endoscopy.. IMPRESSION: Questionable segmental right lower lobe pulmonary emboli. Marked esophageal dilatation with air-fluid level in association with hiatal hernia. Recommend correlation with upper GI series and/or endoscopy..
--- NOTE | 2018-03-06 10:58 | US ---
PROCEDURE: Left lower extremity venous US HISTORY: Leg pain and swelling. Evaluate for DVT. PHYSICIAN(S): Andi Mak MD. TECHNIQUE: Duplex sonography and color-flow Doppler with graded compression were used to evaluate the deep venous system of the left lower extremity. FINDINGS: The visualized deep venous system of the left lower extremity is sonographically normal and compressible. Normal wave forms and augmentation are seen. There is no sonographic evidence for deep venous thrombosis in the visualized segments of the left lower extremity. IMPRESSION: 1. No sonographic evidence for deep venous thrombosis in the visualized segments of the left lower extremity.
--- NOTE | 2018-03-06 11:32 | RAD ---
Date of service: 03/05/2018 PROCEDURE: Left hip portable intraoperative HISTORY: OR COMPARISON: TECHNIQUE: Intraoperative portable FINDINGS: There is a left hip prosthesis in satisfactory alignment. There are 2 hemostats medial to the prosthesis. IMPRESSION: As above
[2018-03-06 11:33] LABS: MEAN CELL VOLUME 89.3 fl (80.0-105.0); MEAN CORPUSCULAR HEMOGLOBIN 29.6 pg (25.0-35.0); MEAN CORPUSCULAR HGB CONC 33.1 g/dl (31.0-37.0); MEAN PLATELET VOLUME 10.4 fl (7.0-11.0); RBC 3.38 10^6/uL (3.5-6.1); RED CELL DISTRIBUTION WIDTH 13.7 % (11.5-14.5); WHITE BLOOD COUNT 11.7 10^3/uL (4.5-11.0)
--- NOTE | 2018-03-06 11:33 | RAD ---
Date of service: 03/05/2018 PROCEDURE: Left hip portable intraoperative HISTORY: POST OP COMPARISON: Earlier intraoperative film TECHNIQUE: Portable film FINDINGS: There is a left hip prosthesis in satisfactory alignment with no complicating factors. IMPRESSION: As above
--- NOTE | 2018-03-06 11:35 | PQF ---
PROVIDER RESPONSE TEXT: Provider was unable to determine a response for this query. REVIEWER QUERY TEXT: Anemia Type Anemia is documented in the Medical Record. Please specify the cause (includes suspected or probable cause) Such as: -- Due to acute blood loss -- Due to chronic blood loss -- Due to iron deficiency -- Due to postoperative blood loss -- Due to chronic disease -- Other, please specify The patient's Clinical Indicators include: Query created by: Daniela Ro on 03/06/2018 10:31 AM Electronically signed by: Gisel Leal MD 03/06/2018 11:32 AM
--- NOTE | 2018-03-06 14:04 | PN ---
DATE: 03/06/2018 ORTHOPEDIC FIRST DAY POSTOPERATIVE REPORT She underwent a left hip bipolar replacement yesterday on 03/05/2018 to stabilize the left hip and get her less pain. She is feeling less pain. She does need a unit of blood for 8.2 hemoglobin since she just has a positive pulmonary embolus that is going to have to be treated with anticoagulation. We have to just watch the wound and make sure she does not get a hematoma, and we will still get her up and out of bed to minimize the chance of pneumonia. She may not feel like walking today, but we have to get her upright for help the lungs aerate better, and the wound looks dry and there were no bleeding. We will follow her H and H closely and start her ambulating when she feels stronger. Dhruv Scott DO DEMETRICE
[2018-03-06] MEDS: Clindamycin 600mg/50ml D5W 600 MG/50 ML VIAL IVPB SCH ×2 (15:22→23:20)
[2018-03-06 16:21] LABS: INR 1.38; PROTHROMBIN TIME 15.8 SECONDS (9.4-12.5)
[2018-03-06 16:25] LABS: PARTIAL THROMBOPLASTIN TIME 285.6 Seconds (25.1-36.5)
--- NOTE | 2018-03-06 17:58 | PN ---
DATE: 03/06/2018 REASON FOR CONSULTATION AND FOLLOWUP: Preop evaluation and postop followup hip surgery. SUBJECTIVE: Patient lying flat, not in apparent distress. Status post fall, status post hip fracture, status post hip surgery. History of cerebral palsy, born with it; hypertension, DVT. Patient seen with Lois Oakley. Patient is stable. Patient had echocardiography on 06/22/2016. LV ejection fraction 60%, moderately calcified aortic valve, normal LV function. LABORATORY DATA: CT chest, there is a questionable segmental right lower lobe PE. Patient's hemoglobin is 8. , status post packed RBC. RECOMMENDATIONS: Patient started on heparin. Continue heparin, continue low-dose beta-jesus. Consider switching over to Eliquis. We will switch over if H and H remained stable to 10 mg of Eliquis b.i.d. for 1 week followed by 5 mg daily from tomorrow. We will monitor H and H. If remained stable, we will start Eliquis 10 b.i.d. for 1 week followed by 5 that will cover for PE. Judy Zuniga MD
--- NOTE | 2018-03-06 21:30 | CP.PCM.PN ---
<Pola Parnell - Last Filed: 03/06/18 21:36> Subjective - Date & Time of Evaluation Date of Evaluation: 03/06/18 Time of Evaluation: 06:15 - Subjective Subjective: Pt seen and examined at bedside while receiving unit of pRBCs.. Denies shortness of breath or chestpain. Denies fever, chills, throbbing pain, n/v/d. Objective - Vital Signs/Intake and Output Vital Signs (last 24 hours): Temp Pulse Resp BP Pulse Ox 99.5 F 121 H 18 108/66 95 03/06/18 14:17 03/06/18 14:17 03/06/18 14:17 03/06/18 14:17 03/06/18 14:17 Intake and Output: 03/06/18 03/07/18 18:59 06:59 Intake Total 575 Balance 575 - Medications Medications: Current Medications Amlodipine Besylate (Norvasc) 10 mg PO DAILY [facility] Last Admin: 03/06/18 18:20 Dose: Not Given Docusate Sodium (Colace) 100 mg PO TID [facility] Last Admin: 03/06/18 18:21 Dose: 100 mg Heparin Sodium (Porcine) (Heparin) 5,000 units SC Q12 [facility]; Protocol Last Admin: 03/06/18 10:00 Dose: Not Given Hydralazine HCl (Apresoline) 10 mg IVP Q6H PRN PRN Reason: Systolic Blood Pressure Hydromorphone HCl (Dilaudid) 1 mg IVP Q3H PRN PRN Reason: Pain, severe (8-10) Last Admin: 03/06/18 20:57 Dose: 1 mg Clindamycin Phosphate (Cleocin) 600 mg in 50 mls @ 50 mls/hr IVPB Q12 [facility]; Protocol Last Admin: 03/06/18 15:22 Dose: 50 mls/hr Heparin Sodium/Sodium Chloride (Heparin 90399 Units/250ml 1/2 Normal Saline) 25,000 units in 250 mls @ 11.594 mls/hr IV .[id number] PRN; Protocol PRN Reason: ADJUST RATE PER PROTOCOL Last Admin: 03/06/18 17:31 Dose: 13.35 units/kg/hr, 8.6 mls/hr Metoprolol Tartrate (Lopressor) 25 mg PO BID [facility] Last Admin: 03/06/18 13:10 Dose: 25 mg Morphine Sulfate (Morphine) 4 mg IVP Q15M PRN PRN Reason: Pain, severe (8-10) Ondansetron HCl (Zofran Inj) 4 mg IVP ONCE PRN PRN Reason: Nausea/Vomiting - Labs Labs: 03/06/18 11:25 03/06/18 03:55 PT 15.8 SECONDS (9.4-12.5) H 03/06/18 16:00 INR 1.38 03/06/18 16:00 APTT 285.6 Seconds (25.1-36.5) H* 03/06/18 16:00 - Constitutional Appears: No Acute Distress - Head Exam Head Exam: ATRAUMATIC, NORMAL INSPECTION - Eye Exam Eye Exam: EOMI. absent: Scleral icterus - ENT Exam ENT Exam: Mucous Membranes Moist - Respiratory Exam Respiratory Exam: Clear to Ausculation Bilateral. absent: Accessory Muscle Use, Wheezes - Cardiovascular Exam Cardiovascular Exam: Tachycardia, +S1, +S2. absent: Murmur - GI/Abdominal Exam GI & Abdominal Exam: Soft, Normal Bowel Sounds. absent: Tenderness - Extremities Exam Extremities Exam: Normal Capillary Refill. absent: Calf Tenderness, Pedal Edema Additional comments: Left hip surgical incision healing healing well. no signs of infection. Dressing in place and intact. - Neurological Exam Neurological Exam: Alert, Awake - Psychiatric Exam Psychiatric exam: Normal Affect, Normal Mood - Skin Skin Exam: Dry, Intact, Warm. absent: Rash Assessment and Plan - Assessment and Plan (Free Text) Assessment: 77 yo F with PMH of cerebral palsy, HTN, DVT presents to ED following a fall found to have L acetabular fx. Pt under ORIF with orthopedic surgery. Pt's hgb droped from 12 to 8 post surgery. Pt found to have PE on chest CT. Pt transused 1 unit pRBCs. Hgb corrected to 10. Pt started on IV heparin drip. Plan: Pulmonary Embolism - CT chest: questionable segmental right lower lobe pulmonary emboli - CXR (03/06): no active disease - extremity u/s 03/04: no DVT - repeat extremity ultrasound pending - on heparin drip - Cardiology, Efrain following; continue heparin and low dose Beta-jesus; start eliquis 10 mg BID for one week followed by 5mg BID to cover for PE Post-surgical drop hemoglobin drop - Hgb dropped from 12 to 8 - transfused 1 unit pRBCs; corrected Hgb to 10 - continue to monitor H/H L acetabular Fx s/p ORIF - pt had mechanical fall - hip pelvis xray (03/04): acute nondisplaced left femoral subcapital fracture no dislocation - pt had ORIF performed today - hip xray post surgery (03/05): Left hip prosthesis in satisfactory alignment, no complicating factors - leukocytosis improving 11.7 today - continue Dilaudid 1mg IVP q3 prn for pain control - continue colace 100 mg PO TID - ortho following Hx HTN - restart home novasc 10 mg PO daily - restart home lopressor 25mg PO BID - hydralazine 10 mg IVP q6 prn Hx DVT - eliquis per cardio as above Ppx - protonix - Full Code <Judy Eli - Last Filed: 03/09/18 15:34> Objective - Vital Signs/Intake and Output Vital Signs (last 24 hours): Temp Pulse Resp BP Pulse Ox 98.4 F 84 20 107/63 95 03/08/18 07:55 03/08/18 21:18 03/08/18 07:55 03/08/18 21:18 03/08/18 07:55 - Labs Labs: 03/08/18 14:30 03/08/18 06:30 PT 15.8 SECONDS (9.4-12.5) H 03/06/18 16:00 INR 1.38 03/06/18 16:00 APTT 53.4 Seconds (25.1-36.5) H 03/07/18 13:10 Attending/Attestation - Attestation I have personally seen and examined this patient.: Yes I have fully participated in the care of the patient.: Yes I have reviewed all pertinent clinical information, including history, physical exam and plan: Yes Notes (Text): 03/09/18 15:34 Medical record note made by the resident after discussion with my direction and input after the patient was personally seen and examined by me. I have reviewed the chart and agree that the record accurately reflects by personal performance of the history, physical exam, data review, and medical decision-making, in the course for the patient. I have also personally directed the plan of care.
[2018-03-07] MEDS: HYDROmorphone 1 mg/ml ISec IVP PRN ×2 (01:15→09:47)
--- NOTE | 2018-03-07 05:56 | CP.PCM.PN ---
Subjective - Date & Time of Evaluation Date of Evaluation: 03/07/18 Time of Evaluation: 06:15 - Subjective Subjective: Awake, alert, no distress, post left hip surgery Reason for consultation and follow up: Cardiac evaluation and risk stratification for left hip surgery,status post fall, follow up post left hip surgery , history of cerebral palsy,hypertension, and DVT. See and examined by me and Dr. Zuniga Objective - Vital Signs/Intake and Output Vital Signs (last 24 hours): Temp Pulse Resp BP Pulse Ox 99.5 F 87 18 107/54 L 95 03/06/18 22:00 03/06/18 22:00 03/06/18 22:00 03/06/18 22:00 03/06/18 22:00 Intake and Output: 03/06/18 03/07/18 18:59 06:59 Intake Total 575 263 Balance 575 263 - Medications Medications: Current Medications Amlodipine Besylate (Norvasc) 10 mg PO DAILY [facility] Last Admin: 03/06/18 18:20 Dose: Not Given Docusate Sodium (Colace) 100 mg PO TID [facility] Last Admin: 03/06/18 18:21 Dose: 100 mg Heparin Sodium (Porcine) (Heparin) 5,000 units SC Q12 [facility]; Protocol Last Admin: 03/06/18 22:44 Dose: Not Given Hydralazine HCl (Apresoline) 10 mg IVP Q6H PRN PRN Reason: Systolic Blood Pressure Hydromorphone HCl (Dilaudid) 1 mg IVP Q3H PRN PRN Reason: Pain, severe (8-10) Last Admin: 03/07/18 01:15 Dose: 1 mg Heparin Sodium/Sodium Chloride (Heparin 85892 Units/250ml 1/2 Normal Saline) 25,000 units in 250 mls @ 11.594 mls/hr IV .[id number] PRN; Protocol PRN Reason: ADJUST RATE PER PROTOCOL Last Titration: 03/07/18 00:52 Dose: 11.35 units/kg/hr, 7.311 mls/hr Metoprolol Tartrate (Lopressor) 25 mg PO BID [facility] Last Admin: 03/06/18 13:10 Dose: 25 mg Morphine Sulfate (Morphine) 4 mg IVP Q15M PRN PRN Reason: Pain, severe (8-10) Ondansetron HCl (Zofran Inj) 4 mg IVP ONCE PRN PRN Reason: Nausea/Vomiting - Labs Labs: 03/06/18 11:25 03/06/18 03:55 PT 15.8 SECONDS (9.4-12.5) H 03/06/18 16:00 INR 1.38 03/06/18 16:00 APTT 98.0 Seconds (25.1-36.5) H 03/06/18 22:55 - Constitutional Appears: Non-toxic, No Acute Distress - Head Exam Head Exam: NORMOCEPHALIC - Eye Exam Eye Exam: Normal appearance Pupil Exam: NORMAL ACCOMODATION - ENT Exam ENT Exam: Mucous Membranes Moist - Respiratory Exam Respiratory Exam: Clear to Ausculation Bilateral, NORMAL BREATHING PATTERN - Cardiovascular Exam Cardiovascular Exam: +S1, +S2 - GI/Abdominal Exam GI & Abdominal Exam: Soft, Normal Bowel Sounds - Extremities Exam Additional comments: 2+edema left hip surgery with abductor pillow intact - Neurological Exam Neurological Exam: Alert, Awake, Oriented x3 - Psychiatric Exam Psychiatric exam: Normal Affect, Normal Mood - Skin Skin Exam: Dry, Normal Color, Warm Assessment and Plan - Assessment and Plan (Free Text) Assessment: A 77 year old female who came in to the ER due to fall having a left hip fracture. History of cerebral palsy.hypertension, DVT on Eliquis. Cleared for left hip surgery by Dr. Garibay (covering our service). Status post left ORIF POD #2. Cardiac status stable.Denies shortness of breath.CT of chest showed questionnable segmental right lower lobe pulmonary emboli. Started on Heparin. Status post blood transfusion of 1 unit PRBC for low H/H. Plan: No distress, no shortness of breath For Echo today to evaluate LV function Left hip surgery POD # 2 Started on Heparin drip titrate to protocol Will switch to Eliquis if H/H stable Repeat H/H post transfusion 03/07.2 Doppler studies for lower extremities to rule out DVT done pending results Cardiac status stable Heart rate and blood pressure controlled Continue current treatment Continue current medications Chart reviewed Will follow up Plan and treatment discussed with Dr. Zuniga
[2018-03-07 07:22] LABS: BASO # 0.02 K/mm3 (0.0-2.0); BASO % 0.2 % (0.0-3.0); EOS # 0.1 (0.0-0.7); EOS % 0.7 % (1.5-5.0); GRAN # 9.52 (1.4-6.5); HEMOGLOBIN 9.4 g/dL (12.0-16.0); LYMPH # 1.3 (1.2-3.4); LYMPH % 10.6 % (22.0-35.0); MEAN CELL VOLUME 88.5 fl (80.0-105.0); MEAN CORPUSCULAR HGB CONC 33.9 g/dl (31.0-37.0); MEAN PLATELET VOLUME 10.8 fl (7.0-11.0); MONO # 1.6 (0.1-0.6); MONO % 12.5 % (1.0-6.0); RBC 3.13 10^6/uL (3.5-6.1); RED CELL DISTRIBUTION WIDTH 14.1 % (11.5-14.5); WHITE BLOOD COUNT 12.5 10^3/uL (4.5-11.0)
[2018-03-07 07:45] LABS: ALB/GLOB RATIO 0.9 (1.1-1.8); ALBUMIN 2.8 g/dL (3.0-4.8); ALT/SGPT 34 U/L (7-56); AST/SGOT 47 U/L (14-36); BLOOD UREA NITROGEN 18 mg/dL (7-21); CALCIUM 8.4 mg/dL (8.4-10.5); GFR NON-AFRICAN AMERICAN > 60
--- NOTE | 2018-03-07 09:00 | US ---
HISTORY: Arm pain and swelling. Evaluate for deep venous thrombosis. PHYSICIAN(S): nAdi Mak MD. FINDINGS: The visualized internal jugular veins are sonographically normal and compressible. No evidence of obstruction or thrombus this is seen. The visualized segments of the subclavian veins are patent with normal waveforms. No sonographic evidence of obstruction or thrombosis is seen. The visualized deep venous systems of both upper extremities proximally are sonographically normal and compressible. IMPRESSION: 1. No sonographic evidence for deep venous thrombosis in the visualized segments of both upper strategies.
--- NOTE | 2018-03-07 09:01 | US ---
HISTORY: Leg pain and swelling. Evaluate for DVT PHYSICIAN(S): Andi Mak MD. TECHNIQUE: Duplex sonography and color-flow Doppler with graded compression were used to evaluate the deep venous systems of both lower extremities. The exam is somewhat limited by edema. FINDINGS: The visualized deep venous systems of both lower extremities are sonographically normal and compressible. Normal wave forms and augmentation are seen. There is no sonographic evidence for deep venous thrombosis in the visualized segments of both lower extremities. IMPRESSION: No sonographic evidence for deep venous thrombosis in the visualized segments of both lower extremities.
[2018-03-07] MEDS ORDERED: Potassium Chloride 20 mEq ER Tab PO ONE ×2 (10:02→13:00)
--- NOTE | 2018-03-07 20:13 | CP.PCM.PN ---
<Pola Parnell - Last Filed: 03/07/18 20:14> Subjective - Date & Time of Evaluation Date of Evaluation: 03/07/18 Time of Evaluation: 06:00 - Subjective Subjective: Pt seen and examined. Resting comfortably in bed. Denies chest pain, SOB. Reports moderate post-surgical hip pain. Objective - Vital Signs/Intake and Output Vital Signs (last 24 hours): Temp Pulse Resp BP Pulse Ox 97.9 F 102 H 18 132/72 97 03/07/18 07:50 03/07/18 07:50 03/07/18 07:50 03/07/18 07:50 03/07/18 07:50 Intake and Output: 03/07/18 03/08/18 18:59 06:59 Intake Total 360 Balance 360 - Medications Medications: Current Medications Amlodipine Besylate (Norvasc) 10 mg PO DAILY [facility] Last Admin: 03/07/18 10:00 Dose: Not Given Apixaban (Eliquis) 10 mg PO BID [facility]; Protocol Stop: 03/13/18 23:59 Last Admin: 03/07/18 17:35 Dose: 10 mg Apixaban (Eliquis) 5 mg PO BID [facility]; Protocol Docusate Sodium (Colace) 100 mg PO TID [facility] Last Admin: 03/07/18 17:35 Dose: 100 mg Hydralazine HCl (Apresoline) 10 mg IVP Q6H PRN PRN Reason: Systolic Blood Pressure Hydromorphone HCl (Dilaudid) 1 mg IVP Q3H PRN PRN Reason: Pain, severe (8-10) Last Admin: 03/07/18 09:47 Dose: 1 mg Metoprolol Tartrate (Lopressor) 25 mg PO BID [facility] Last Admin: 03/07/18 18:26 Dose: Not Given Morphine Sulfate (Morphine) 4 mg IVP Q15M PRN PRN Reason: Pain, severe (8-10) - Labs Labs: 03/07/18 07:00 03/07/18 07:00 PT 15.8 SECONDS (9.4-12.5) H 03/06/18 16:00 INR 1.38 03/06/18 16:00 APTT 53.4 Seconds (25.1-36.5) H 03/07/18 13:10 - Constitutional Appears: No Acute Distress - Head Exam Head Exam: ATRAUMATIC, NORMAL INSPECTION - Eye Exam Eye Exam: EOMI, Normal appearance. absent: Scleral icterus - ENT Exam ENT Exam: Mucous Membranes Moist - Respiratory Exam Respiratory Exam: Clear to Ausculation Bilateral, NORMAL BREATHING PATTERN. absent: Rales, Rhonchi, Wheezes - Cardiovascular Exam Cardiovascular Exam: RRR, +S1, +S2. absent: Murmur - GI/Abdominal Exam GI & Abdominal Exam: Soft, Normal Bowel Sounds. absent: Tenderness - Extremities Exam Extremities Exam: absent: Calf Tenderness, Pedal Edema Additional comments: left hand palsy. Left lower extremity internally rotated. Left hip s/p ORIF surgical incision healing well. No signs of infection - Neurological Exam Neurological Exam: Alert, Awake - Psychiatric Exam Psychiatric exam: Normal Affect, Normal Mood - Skin Skin Exam: Dry, Warm. absent: Rash Assessment and Plan - Assessment and Plan (Free Text) Assessment: 77 yo F with PMH of cerebral palsy, HTN, DVT presents to ED following a fall found to have L acetabular fx. Pt under ORIF with orthopedic surgery. Pt's hgb droped from 12 to 8 post surgery. Pt found to have PE on chest CT. Pt transused 1 unit pRBCs. Hgb stable today. Plan: Pulmonary Embolism - CT chest: questionable segmental right lower lobe pulmonary emboli - CXR (03/06): no active disease - upper and lower extremity u/s: no DVT - stopped heparin drip - Cardiology, Dr. Zuniga following; continue low dose Beta-jesus; start eliquis 10 mg BID for one week followed by 5mg BID to cover for PE - f/u echo Post-surgical drop hemoglobin drop - Hgb dropped from 12 to 8, transfused 1 unit pRBCs; corrected Hgb to 10 - Hgb stable today at 9.4 - continue to monitor H/H L acetabular Fx s/p ORIF - pt had mechanical fall - hip pelvis xray (03/04): acute nondisplaced left femoral subcapital fracture no dislocation - hip xray post surgery (03/05): Left hip prosthesis in satisfactory alignment, no complicating factors - leukocytosis, 12.5 - continue Dilaudid 1mg IVP q3 prn for pain control - continue colace 100 mg PO TID - ortho following - PT eval Hx HTN - continue home novasc 10 mg PO daily - continue home lopressor 25mg PO BID - hydralazine 10 mg IVP q6 prn Hx DVT - eliquis per cardio as above Ppx - protonix - Full Code Dispo: possible discharge tomorrow to rehab. Pt seen and examined, assessment and plan discussed with Dr. lEi. Pola Parnell PGY1 <Judy Eli - Last Filed: 03/09/18 15:33> Objective - Vital Signs/Intake and Output Vital Signs (last 24 hours): Temp Pulse Resp BP Pulse Ox 98.4 F 84 20 107/63 95 03/08/18 07:55 03/08/18 21:18 03/08/18 07:55 03/08/18 21:18 03/08/18 07:55 - Labs Labs: 03/08/18 14:30 03/08/18 06:30 PT 15.8 SECONDS (9.4-12.5) H 03/06/18 16:00 INR 1.38 03/06/18 16:00 APTT 53.4 Seconds (25.1-36.5) H 03/07/18 13:10 Attending/Attestation - Attestation I have personally seen and examined this patient.: Yes I have fully participated in the care of the patient.: Yes I have reviewed all pertinent clinical information, including history, physical exam and plan: Yes Notes (Text): 03/09/18 15:33 Medical record note made by the resident after discussion with my direction and input after the patient was personally seen and examined by me. I have reviewed the chart and agree that the record accurately reflects by personal performance of the history, physical exam, data review, and medical decision-making, in the course for the patient. I have also personally directed the plan of care.
[2018-03-07 23:02] VITALS: RESP 20
[2018-03-08] MEDS: HYDROmorphone 1 mg/ml ISec IVP PRN (01:30)
[2018-03-08] MEDS ORDERED: Magnesium Citrate Oral SOL (300 ml) PO ONE (06:23)
--- NOTE | 2018-03-08 06:56 | CP.PCM.PN ---
Subjective - Date & Time of Evaluation Date of Evaluation: 03/08/18 Time of Evaluation: 06:15 - Subjective Subjective: Awake, alert, no distress, anxious about bowel movement, no bowel movement for 4 days Reason for consultation and follow up: Cardiac evaluation and risk stratification for left hip surgery,status post fall, follow up post left hip surgery , history of cerebral palsy,hypertension, and DVT. Seen and examined by me and Dr. Zuniga Objective - Vital Signs/Intake and Output Vital Signs (last 24 hours): Temp Pulse Resp BP Pulse Ox 98.6 F 99 H 20 118/67 94 L 03/07/18 23:01 03/07/18 23:01 03/07/18 23:01 03/07/18 23:01 03/07/18 23:01 Intake and Output: 03/07/18 03/08/18 18:59 06:59 Intake Total 360 Balance 360 - Medications Medications: Current Medications Amlodipine Besylate (Norvasc) 10 mg PO DAILY [facility] Last Admin: 03/07/18 10:00 Dose: Not Given Apixaban (Eliquis) 10 mg PO BID [facility]; Protocol Stop: 03/13/18 23:59 Last Admin: 03/07/18 17:35 Dose: 10 mg Apixaban (Eliquis) 5 mg PO BID [facility]; Protocol Docusate Sodium (Colace) 100 mg PO TID [facility] Last Admin: 03/07/18 17:35 Dose: 100 mg Hydralazine HCl (Apresoline) 10 mg IVP Q6H PRN PRN Reason: Systolic Blood Pressure Hydromorphone HCl (Dilaudid) 1 mg IVP Q3H PRN PRN Reason: Pain, severe (8-10) Last Admin: 03/08/18 01:30 Dose: 1 mg Metoprolol Tartrate (Lopressor) 25 mg PO BID [facility] Last Admin: 03/07/18 18:26 Dose: Not Given Morphine Sulfate (Morphine) 4 mg IVP Q15M PRN PRN Reason: Pain, severe (8-10) - Labs Labs: 03/07/18 07:00 03/07/18 07:00 PT 15.8 SECONDS (9.4-12.5) H 03/06/18 16:00 INR 1.38 03/06/18 16:00 APTT 53.4 Seconds (25.1-36.5) H 03/07/18 13:10 - Constitutional Appears: Non-toxic, No Acute Distress - Head Exam Head Exam: NORMAL INSPECTION, NORMOCEPHALIC - Eye Exam Eye Exam: Normal appearance Pupil Exam: NORMAL ACCOMODATION - ENT Exam ENT Exam: Mucous Membranes Moist - Respiratory Exam Respiratory Exam: Clear to Ausculation Bilateral, NORMAL BREATHING PATTERN - Cardiovascular Exam Cardiovascular Exam: +S1, +S2 - GI/Abdominal Exam GI & Abdominal Exam: Soft, Normal Bowel Sounds Additional comments: constipated, no BM for 4 days - Extremities Exam Additional comments: left hip surgery with leg immobilizer, abductor pillow left arm contracted - Neurological Exam Neurological Exam: Alert, Awake, Oriented x3 - Psychiatric Exam Psychiatric exam: Anxious - Skin Skin Exam: Dry, Normal Color, Warm Assessment and Plan - Assessment and Plan (Free Text) Assessment: A 77 year old female who came in to the ER due to fall having a left hip fracture. History of cerebral palsy.hypertension, DVT on Eliquis. Cleared for left hip surgery by Dr. Garibay (covering our service). Status post left ORIF POD #2. Cardiac status stable.Denies shortness of breath.CT of chest showed quest ionable segmental right lower lobe pulmonary emboli. Status post blood transfusion of 1 unit PRBC for low H/H. Heparin drip discontinued and switch to Eliquis. Anxious about no bowel movement for 4 days. Lactulose given yesterday but still no bowel movement. Will give half bottle of Mg citrate today. Plan: No distress, no shortness of breath Anxious about no bowel movement for 4 days Half bottle of Mg citrate ordered Left hip surgery POD # 3 Heparin drip discontinued and started on Eliquis Doppler studies for lower extremities-no evidence of DVT Cardiac status stable Heart rate and blood pressure controlled On Norvasc 10 mg daily,Eliquis 10 mg BID until 03/13/18 then decrease to 5 mg BID Lopressor 25 mg BID Continue current treatment Continue current medications Chart reviewed Physical therapy Discharge planning possible rehab Will follow up Plan and treatment discussed with Dr. Zuniga
[2018-03-08 07:16] LABS: BASO # 0.02 K/mm3 (0.0-2.0); BASO % 0.2 % (0.0-3.0); EOS # 0.2 (0.0-0.7); GRAN # 7.15 (1.4-6.5); GRAN % 71.3 % (50.0-68.0); HEMOGLOBIN 8.9 g/dL (12.0-16.0); LYMPH # 1.4 (1.2-3.4); LYMPH % 13.5 % (22.0-35.0); MEAN CELL VOLUME 88.9 fl (80.0-105.0); MEAN CORPUSCULAR HEMOGLOBIN 30.1 pg (25.0-35.0); MEAN CORPUSCULAR HGB CONC 33.8 g/dl (31.0-37.0); MEAN PLATELET VOLUME 10.4 fl (7.0-11.0); MONO # 1.3 (0.1-0.6); RBC 2.96 10^6/uL (3.5-6.1); RED CELL DISTRIBUTION WIDTH 14.2 % (11.5-14.5)
--- NOTE | 2018-03-08 07:51 | PN ---
DATE: 03/07/2018 REASON FOR CONSULTATION AND FOLLOWUP: Preop evaluation, postop followup, DVT, PE, status post fractured hip, status post OR and internal fixation. This note is in addition to dictated by nurse practitioner. SUBJECTIVE: Patient is stable. Denies any chest pain, shortness of breath, or any palpitation. Patient is hemodynamically stable for echo today. H and H is stable at 9.4 after transfusion. Patient is on heparin. We will discontinue heparin, start 10 mg of Eliquis today for 1 week followed by 5 b.i.d. Patient was at home on Eliquis. We will supplement potassium. Judy Zuniga MD
[2018-03-08 07:56] VITALS: TEMP 98.4; O2SAT 95
[2018-03-08 07:56] LABS: ALB/GLOB RATIO 0.9 (1.1-1.8); ALBUMIN 2.3 g/dL (3.0-4.8); ALT/SGPT 60 U/L (7-56); AST/SGOT 76 U/L (14-36); BLOOD UREA NITROGEN 13 mg/dL (7-21); CALCIUM 8.1 mg/dL (8.4-10.5); GFR NON-AFRICAN AMERICAN > 60
--- NOTE | 2018-03-08 14:21 | PN ---
DATE: 03/08/2018 REASON FOR CONSULTATION AND FOLLOWUP: Acute PE, preop and postop evaluation for hip surgery. SUBJECTIVE: The patient is lying comfortably. This note is an addition to dictated by nurse practitioner. The patient has a history of cerebral palsy, status post fall, status post fracture, status post . Postop course was complicated by a small PE. The patient was on Eliquis at home before, so I started 10 mg p.o. b.i.d. for 1 week followed by 5 mg to continue. The patient will get the benefit because the patient has a hip surgery. I discussed with the son. Monitor H and H. Continue Norvasc. Continue Eliquis 10 mg p.o. b.i.d. until 03/13/2018 and then 5 mg p.o. b.i.d. Continue Lopressor. Will follow with you. Thank you for providing us the opportunity in taking care of the patient, Soledad Wilburn. Judy Zuniga MD
[2018-03-08 14:58] LABS: HEMOGLOBIN 9.1 g/dL (12.0-16.0); MEAN CORPUSCULAR HEMOGLOBIN 30.3 pg (25.0-35.0); MEAN CORPUSCULAR HGB CONC 34.1 g/dl (31.0-37.0); MEAN PLATELET VOLUME 10.3 fl (7.0-11.0)
--- NOTE | 2018-03-08 19:02 | CARD ---
APPROVED REPORT Date of service: 03/08/2018 EXAM: Two-dimensional and M-mode echocardiogram with Doppler and color Doppler. INDICATION LV Function:SystolicDiastolic 2D DIMENSIONS Left Atrium (2D)3.6 (1.6-4.0cm)IVSd1.1 (0.7-1.1cm) LVDd2.8 (3.9-5.9cm)PWd1.2 (0.7-1.1cm) LVDs1.9 (2.5-4.0cm)FS (%) 33.3 % LVEF (%)63.8 (>50%) M-Mode DIMENSIONS Aortic Root2.70 (2.2-3.7cm)Aortic Cusp Exc.1.30 (1.5-2.0cm) Aortic Valve AoV Peak Anmhmpzp668.0cm/Dee Peak GR.16mmHg Mitral Valve MV E Vofxcdnv02.9cm/sMV A Lpjqmpcq82.9cm/sE/A ratio0.8 TDI E/Lateral E'0.0E/Medial E'0.0 Tricuspid Valve TR Peak [id number]/sRAP [id number] Peak Gr.8mmHg [id number] LEFT VENTRICLE The left ventricle is normal size. There is borderline concentric left ventricular hypertrophy. The left ventricular function is normal.[id number] There is normal LV segmental wall motion. Transmitral Doppler flow pattern is Grade III-reversible restrictive diastolic dysfunction. No left ventricle thrombus noted on this study. There is no ventricular septal defect visualized. There is no left ventricular aneurysm. There is no mass noted in the left ventricle. RIGHT VENTRICLE The right ventricle is normal size. There is normal right ventricular wall thickness. The right ventricular systolic function is normal. ATRIA The left atrium size is normal. The right atrium size is normal. The interatrial septum is intact with no evidence for an atrial septal defect. AORTIC VALVE The aortic valve is calcified and displays decreased opening. There is moderate aortic regurgitation, Eccentric Jet. There is moderate valvular aortic stenosis. There is no aortic valvular vegetation. MITRAL VALVE The mitral valve is thickened but opens well. Mitral regurgitation is mild. There is no mitral valve stenosis. There is no evidence of mitral valve prolapse. TRICUSPID VALVE The tricuspid valve leaflets are thickened , but open well. There is trace tricuspid regurgitation.RVSP-17 mmof hg There is no tricuspid valve stenosis. There is no tricuspid valve prolapse or vegetation. PULMONIC VALVE The pulmonic valve is not well visualized. GREAT VESSELS The aortic root is normal in size. The ascending aorta is normal in size. The pulmonary artery is normal. The IVC is dilated. PERICARDIAL EFFUSION There is no pleural effusion. There is no pericardial effusion. <Conclusion> The left ventricle is normal size. There is borderline concentric left ventricular hypertrophy. The left ventricular function is normal.[id number]% There is moderate aortic regurgitation, Eccentric Jet. Mitral regurgitation is mild. There is trace tricuspid regurgitation.RVSP-17 mmof hg The IVC is dilated. There is no pericardial effusion.
--- NOTE | 2018-03-08 19:21 | CP.PCM.DIS ---
<Pola Parnell - Last Filed: 03/08/18 19:43> Provider - Provider Date of Admission: 03/04/18 19:40 Attending physician: Judy Eil MD Primary care physician: Jaime Sinha MD Time Spent in preparation of Discharge (in minutes): 45 Diagnosis - Discharge Diagnosis (1) Pulmonary embolism Status: Acute Priority: High (2) Acetabular fracture Status: Acute Priority: High (3) HTN (hypertension) Status: Acute Priority: High (4) DVT (deep venous thrombosis) Status: Acute Priority: High Hospital Course - Lab Results Lab Results: Micro Results 03/04/18 17:10 Blood-Venous Blood Culture - Preliminary NO GROWTH AFTER 4 DAYS 03/06/18 06:15 Blood-Venous Blood Culture - Preliminary NO GROWTH AFTER 48 HOURS 03/04/18 16:30 Blood-Venous Blood Culture - Preliminary NO GROWTH AFTER 3 DAYS 03/06/18 06:21 Urine,Pierre Urine Culture - Final No Growth (<1,000 CFU/ML) Most Recent Lab Values WBC 11.0 10^3/uL (4.5-11.0) 03/08/18 14:30 RBC 3.00 10^6/uL (3.5-6.1) L 03/08/18 14:30 Hgb 9.1 g/dL (12.0-16.0) L 03/08/18 14:30 Hct 26.7 % (36.0-48.0) L 03/08/18 14:30 MCV 89.0 fl (80.0-105.0) 03/08/18 14:30 MCH 30.3 pg (25.0-35.0) 03/08/18 14:30 MCHC 34.1 g/dl (31.0-37.0) 03/08/18 14:30 RDW 14.0 % (11.5-14.5) 03/08/18 14:30 Plt Count 207 10^3/uL (120.0-450.0) 03/08/18 14:30 MPV 10.3 fl (7.0-11.0) 03/08/18 14:30 Gran % 71.3 % (50.0-68.0) H 03/08/18 06:30 Lymph % (Auto) 13.5 % (22.0-35.0) L 03/08/18 06:30 [place] % (Auto) 13.0 % (1.0-6.0) H 03/08/18 06:30 Eos % (Auto) 2.0 % (1.5-5.0) 03/08/18 06:30 Baso % (Auto) 0.2 % (0.0-3.0) 03/08/18 06:30 Gran # 7.15 (1.4-6.5) H 03/08/18 06:30 Lymph # (Auto) 1.4 (1.2-3.4) 03/08/18 06:30 [place] # (Auto) 1.3 (0.1-0.6) H 03/08/18 06:30 Eos # (Auto) 0.2 (0.0-0.7) 03/08/18 06:30 Baso # (Auto) 0.02 K/mm3 (0.0-2.0) 03/08/18 06:30 PT 15.8 SECONDS (9.4-12.5) H 03/06/18 16:00 INR 1.38 03/06/18 16:00 APTT 53.4 Seconds (25.1-36.5) H 03/07/18 13:10 D-Dimer, Quantitative 991 ng/mlDDU (0-243) H 03/06/18 03:55 Sodium 133 mmol/L (132-148) 03/08/18 06:30 Potassium 4.1 mmol/L (3.6-5.0) 03/08/18 06:30 Chloride 103 mmol/L (98-107) 03/08/18 06:30 Carbon Dioxide 26 mmol/L (21-33) 03/08/18 06:30 Anion Gap 9 (10-20) L 03/08/18 06:30 BUN 13 mg/dL (7-21) 03/08/18 06:30 Creatinine 0.4 mg/dl (0.7-1.2) L 03/08/18 06:30 Est GFR ( Amer) > 60 03/08/18 06:30 Est GFR (Non-Af Amer) > 60 03/08/18 06:30 Random Glucose 114 mg/dL (70-110) H 03/08/18 06:30 Calcium 8.1 mg/dL (8.4-10.5) L 03/08/18 06:30 Phosphorus 2.9 mg/dL (2.5-4.5) 03/05/18 07:00 Magnesium 1.8 mg/dL (1.7-2.2) 03/07/18 07:00 Total Bilirubin 0.9 mg/dL (0.2-1.3) 03/08/18 06:30 AST 76 U/L (14-36) H D 03/08/18 06:30 ALT 60 U/L (7-56) H 03/08/18 06:30 Alkaline Phosphatase 90 U/L (38-126) 03/08/18 06:30 Troponin I 0.09 ng/mL 03/06/18 03:55 Total Protein 4.8 g/dL (5.8-8.3) L 03/08/18 06:30 Albumin 2.3 g/dL (3.0-4.8) L 03/08/18 06:30 Globulin 2.5 gm/dL 03/08/18 06:30 Albumin/Globulin Ratio 0.9 (1.1-1.8) L 03/08/18 06:30 Procalcitonin 0.42 NG/ML (0.19-0.49) 03/06/18 06:15 Urine Color Yellow (YELLOW) 03/04/18 18:38 Urine Appearance Clear (CLEAR) 03/04/18 18:38 Urine pH 6.0 (4.7-8.0) 03/04/18 18:38 Ur Specific [place] 1.025 (1.005-1.035) 03/04/18 18:38 Urine Protein Trace mg/dL (<30 mg/dL) H 03/04/18 18:38 Urine Glucose (UA) Negative mg/dL (NEGATIVE) 03/04/18 18:38 Urine Ketones 15 mg/dL (NEGATIVE) H 03/04/18 18:38 Urine Blood Negative (NEGATIVE) 03/04/18 18:38 Urine Nitrate Negative (NEGATIVE) 03/04/18 18:38 Urine Bilirubin Negative (NEGATIVE) 03/04/18 18:38 Urine Urobilinogen 0.2 E.U./dL (<1 E.U./dL) 03/04/18 18:38 Ur Leukocyte Esterase Negative [place]/uL (NEGATIVE) 03/04/18 18:38 Urine RBC Negative /hpf (0-2) 03/04/18 18:38 Urine WBC Negative /hpf (0-6) 03/04/18 18:38 Ur Epithelial Cells 0 - 2 /hpf (0-5) 18 18:38 Urine Bacteria Neg (NEG) 03/04/18 18:38 Blood Type A POSITIVE 03/04/18 20:09 Blood Type Confirm A POSITIVE 03/04/18 21:35 Antibody Screen Negative 03/04/18 20:09 Crossmatch See Detail 03/04/18 20:09 BBK History Checked No verified bt 03/04/18 20:09 - Hospital Course Hospital Course: Pt is a 77 yo F with PMH of cerebral palsy, HTN, and DVT who presented to ED after a fall on to her left hip. Patient stated that she was walking to the bathroom when she fell directly on to her left hip and bruised her left lower extremity. She stated that her caregiver was helping her at the time but was unable to prevent her from falling. Pt was able to fully recall the incident and denied loss of consciousness or pre-syncopal symptoms of dizziness, blurred vision. Pt reported significant pain from the left hip and LLE but otherwise denied fever/chills, CP, SOB, nausea/vomiting/abdominal pain, peripheral numbness/tingling. In the ED, Xray of left hip revealed nondisplaced left femoral subcapital fracture. WBC was elevated at 17.9, likely secondary to trauma. Chest xray and UA was negative. Pt was admitted for surgery of left hip. On admission, pts home eliquis was held. Pain was controlled with IV morphine prn. She was evaluated by cardiology and cleared for surgery with orthopedic surgery. Patient underwent left hip replacement with bipolar prostheshesis without any intraop complications. Hip Xray post surgery showed left hip prosthesis in satisfactory alignment, with no complicating factors. Leukocytosis improved to 11.7. Patient endorsed no complaints other than soreness at incision site and denied shortness of breath, fatigue, fever, chills, chest pain, nausea, hematemesis or hematuria. Post surgery, patient had Hbg drop from 12 to 8 and was transfused with 1 unit pRBCs which corrected hemoglobin to 10. Chest CT revealed segmental right lower lobe pulmonary emboli. Bilateral upper and lower extremity ultrasound showed no evidence of DVT. Pt was started on heparin drip and low dose beta-jesus. Pt was evaluated by cardiology and recommended her eliquis be restarted at 10mg BID until 03/13/18 followed by 5mg BID indefinitely to cover for PE. Pts hemoglobin stabilized and [facility] - Date & Time of H&P Date of H&P: 03/08/18 Time of H&P: 07:00 Discharge Exam - Head Exam Head Exam: NORMAL INSPECTION, NORMOCEPHALIC - Eye Exam Eye Exam: EOMI - ENT Exam ENT Exam: Mucous Membranes Moist - Respiratory Exam Respiratory Exam: NORMAL BREATHING PATTERN, UNREMARKABLE - Cardiovascular Exam Cardiovascular Exam: RRR, +S1, +S2. absent: Diastolic murmur, Systolic Murmur - GI/Abdominal Exam GI & Abdominal Exam: Normal Bowel Sounds, Unremarkable - Extremities Exam Additional comments: cerebral palsy, SHARITA palsy, LLE internally rotated - Neurological Exam Neurological exam: Alert, Oriented x3 - Psychiatric Exam Psychiatric exam: Normal Affect, Normal Mood - Skin Skin Exam: Dry, Normal Color, Warm Discharge Plan - Follow Up Plan Condition: STABLE Disposition: TRANSF TO SNF Instructions: Preventing Falls in the Older Adult, Hip Fracture (DC) Additional Instructions: 1. you are being discharged to [facility] 2. please follow up with your surgeon within 1 week of discharge 3. please follow up with your primary care physician within 1 week of discharge 4. please take your medications as directed 5. if your symptoms return or worsen, go to the nearest emergency department Referrals: Dhruv Scott DO [Staff Provider] - Jaime Sinha MD [Primary Care Provider] - <Judy Eli - Last Filed: 03/09/18 15:33> Provider - Provider Date of Admission: 03/04/18 19:40 Attending physician: Judy Eli MD Primary care physician: Jaime Sinha MD Hospital Course - Lab Results Lab Results: Micro Results 03/06/18 06:15 Blood-Venous Blood Culture - Preliminary NO GROWTH AFTER 3 DAYS 03/04/18 16:30 Blood-Venous Blood Culture - Preliminary NO GROWTH AFTER 4 DAYS 03/04/18 17:10 Blood-Venous Blood Culture - Preliminary NO GROWTH AFTER 4 DAYS 03/06/18 06:21 Urine,Pierre Urine Culture - Final No Growth (<1,000 CFU/ML) Most Recent Lab Values WBC 11.0 10^3/uL (4.5-11.0) 03/08/18 14:30 RBC 3.00 10^6/uL (3.5-6.1) L 03/08/18 14:30 Hgb 9.1 g/dL (12.0-16.0) L 03/08/18 14:30 Hct 26.7 % (36.0-48.0) L 03/08/18 14:30 MCV 89.0 fl (80.0-105.0) 03/08/18 14:30 MCH 30.3 pg (25.0-35.0) 03/08/18 14:30 MCHC 34.1 g/dl (31.0-37.0) 03/08/18 14:30 RDW 14.0 % (11.5-14.5) 03/08/18 14:30 Plt Count 207 10^3/uL (120.0-450.0) 03/08/18 14:30 MPV 10.3 fl (7.0-11.0) 03/08/18 14:30 Gran % 71.3 % (50.0-68.0) H 03/08/18 06:30 Lymph % (Auto) 13.5 % (22.0-35.0) L 03/08/18 06:30 [place] % (Auto) 13.0 % (1.0-6.0) H 03/08/18 06:30 Eos % (Auto) 2.0 % (1.5-5.0) 03/08/18 06:30 Baso % (Auto) 0.2 % (0.0-3.0) 03/08/18 06:30 Gran # 7.15 (1.4-6.5) H 03/08/18 06:30 Lymph # (Auto) 1.4 (1.2-3.4) 03/08/18 06:30 [place] # (Auto) 1.3 (0.1-0.6) H 03/08/18 06:30 Eos # (Auto) 0.2 (0.0-0.7) 03/08/18 06:30 Baso # (Auto) 0.02 K/mm3 (0.0-2.0) 03/08/18 06:30 PT 15.8 SECONDS (9.4-12.5) H 03/06/18 16:00 INR 1.38 03/06/18 16:00 APTT 53.4 Seconds (25.1-36.5) H 03/07/18 13:10 D-Dimer, Quantitative 991 ng/mlDDU (0-243) H 03/06/18 03:55 Sodium 133 mmol/L (132-148) 03/08/18 06:30 Potassium 4.1 mmol/L (3.6-5.0) 03/08/18 06:30 Chloride 103 mmol/L (98-107) 03/08/18 06:30 Carbon Dioxide 26 mmol/L (21-33) 03/08/18 06:30 Anion Gap 9 (10-20) L 03/08/18 06:30 BUN 13 mg/dL (7-21) 03/08/18 06:30 Creatinine 0.4 mg/dl (0.7-1.2) L 03/08/18 06:30 Est GFR ( Amer) > 60 03/08/18 06:30 Est GFR (Non-Af Amer) > 60 03/08/18 06:30 Random Glucose 114 mg/dL (70-110) H 03/08/18 06:30 Calcium 8.1 mg/dL (8.4-10.5) L 03/08/18 06:30 Phosphorus 2.9 mg/dL (2.5-4.5) 03/05/18 07:00 Magnesium 1.8 mg/dL (1.7-2.2) 03/07/18 07:00 Total Bilirubin 0.9 mg/dL (0.2-1.3) 03/08/18 06:30 AST 76 U/L (14-36) H D 03/08/18 06:30 ALT 60 U/L (7-56) H 03/08/18 06:30 Alkaline Phosphatase 90 U/L (38-126) 03/08/18 06:30 Troponin I 0.09 ng/mL 03/06/18 03:55 Total Protein 4.8 g/dL (5.8-8.3) L 03/08/18 06:30 Albumin 2.3 g/dL (3.0-4.8) L 03/08/18 06:30 Globulin 2.5 gm/dL 03/08/18 06:30 Albumin/Globulin Ratio 0.9 (1.1-1.8) L 03/08/18 06:30 Procalcitonin 0.42 NG/ML (0.19-0.49) 03/06/18 06:15 Urine Color Yellow (YELLOW) 03/04/18 18:38 Urine Appearance Clear (CLEAR) 03/04/18 18:38 Urine pH 6.0 (4.7-8.0) 03/04/18 18:38 Ur Specific [place] 1.025 (1.005-1.035) 03/04/18 18:38 Urine Protein Trace mg/dL (<30 mg/dL) H 03/04/18 18:38 Urine Glucose (UA) Negative mg/dL (NEGATIVE) 03/04/18 18:38 Urine Ketones 15 mg/dL (NEGATIVE) H 03/04/18 18:38 Urine Blood Negative (NEGATIVE) 03/04/18 18:38 Urine Nitrate Negative (NEGATIVE) 03/04/18 18:38 Urine Bilirubin Negative (NEGATIVE) 03/04/18 18:38 Urine Urobilinogen 0.2 E.U./dL (<1 E.U./dL) 03/04/18 18:38 Ur Leukocyte Esterase Negative [place]/uL (NEGATIVE) 03/04/18 18:38 Urine RBC Negative /hpf (0-2) 03/04/18 18:38 Urine WBC Negative /hpf (0-6) 03/04/18 18:38 Ur Epithelial Cells 0 - 2 /hpf (0-5) 03/04/18 18:38 Urine Bacteria Neg (NEG) 03/04/18 18:38 Blood Type A POSITIVE 03/04/18 20:09 Blood Type Confirm A POSITIVE 03/04/18 21:35 Antibody Screen Negative 03/04/18 20:09 Crossmatch See Detail 03/04/18 20:09 BBK History Checked No verified bt 03/04/18 20:09 Attending/Attestation - Attestation I have personally seen and examined this patient.: Yes I have fully participated in the care of the patient.: Yes I have reviewed all pertinent clinical information, including history, physical exam and plan: Yes Notes (Text): 03/09/18 15:27 Medical record note made by the resident after discussion with my direction and input after the patient was personally seen and examined by me. I have reviewed the chart and agree that the record accurately reflects by personal performance of the history, physical exam, data review, and medical decision-making, in the course for the patient. I have also personally directed the plan of care. 77 yo F with PMH of cerebral palsy, HTN, and DVT was admitted with fall , vision. Xray of left hip revealed nondisplaced left femoral subcapital fracture. WBC was elevated at 17.9, likely secondary to trauma. On admission, pts home eliquis was held. She was evaluated by cardiology and cleared for surgery with orthopedic surgery. Patient underwent left hip replacement with bipolar prostheshesis without any intraop complications. . Post surgery, Patient had Hbg drop from 12 to 8 and was transfused with 1 unit pRBCs which corrected hemoglobin around 9.5. Patient was found to be dyspnic and Chest CT revealed segmental right lower lobe pulmonary emboli. Bilateral upper and lower extremity ultrasound showed no evidence of DVT. Pt was started on heparin drip . Patient was evaluated by cardiology and recommended her eliquis be restarted at 10mg BID until 03/13/18 followed by 5mg BID indefinitely to cover for PE. Patient remain stable. She will be discharged to [facility] rehab for rehabilitation. Management plan was discussed in detail with patient. Education was provided
[2018-03-08 21:23] VITALS: BP 107/63; PULSE 84
== END 2018-03-08 22:16 | DRG 470 ==
LOC: ED 15:07 → ERH 19:40 → 5RNO 21:39
PROVIDERS: ADMIT Internal Medicine; ATTEND Internal Medicine
PROC: 0SRB03A Replacement of Left Hip Joint with Ceramic Synthetic Substitute, Uncemented, Open Approach (ICD-10-PCS; principal; 2018-03-05 11:00)
PROC: 30233N1 Transfusion of Nonautologous Red Blood Cells into Peripheral Vein, Percutaneous Approach (ICD-10-PCS; 2018-03-06)
DX: S72.012A Unspecified intracapsular fracture of left femur, initial encounter for closed fracture (principal); I26.99 Other pulmonary embolism without acute cor pulmonale; L03.90 Cellulitis, unspecified; W18.30XA Fall on same level, unspecified, initial encounter; I10 Essential (primary) hypertension; G80.9 Cerebral palsy, unspecified; M79.652 Pain in left thigh; E10.9 Type 1 diabetes mellitus without complications; I35.8 Other nonrheumatic aortic valve disorders; Y92.009 Unspecified place in unspecified non-institutional (private) residence as the place of occurrence of the external cause; E78.00 Pure hypercholesterolemia, unspecified; Z79.01 Long term (current) use of anticoagulants; Z79.4 Long term (current) use of insulin; Z86.718 Personal history of other venous thrombosis and embolism; Z90.710 Acquired absence of both cervix and uterus